=== PATIENT | male | born 1955 | race Caucasian/White ===

== ENCOUNTER 2016-09-05 12:52 | Inpatient (IN) | payer BC ==
[~2016-09-05] VITALS: Ht 180.3 cm; Wt 93.0 kg
[2016-09-05] VITALS (7 sets, daily range): BP systolic 129–145; BP diastolic 92–96; BMI 29.5
--- NOTE | ~2016-09-05 | HEMODYNAMI ---
PATIENT:IDALMIS JEREZ MEDICAL RECORD: [id number] : 51 LOCATION:[facility] D.2119 ADMISSION DATE: 09/05/16 Generatedon:09/13/201615:02 Patient name: IDALMIS JEREZ Patient #: [id number] SSN: : 1955 Date of study: 09/13/2016 Page: Of Hemodynamic Procedure Report Patient Data Patient Demographics Procedure consent was obtained First Name: IDALMIS Gender: Male Last Name: MERI : 1955 Patient #: [id number] Age: 61 year(s) Race: Unknown Additional ID: [id number] Contact details Address: [facility] [address] [place] State: [place] City: [place] Zip code: [address] Admission Admission Data Admission Date: 09/05/2016 Admission Time: 15:52 Room #: [facility]9 Procedure Procedure Types Cath Procedure Diagnostic Procedure [facility] w/Coronaries PCI Procedure Coronary Stent Initial Miscellaneous Procedures Moderate Sedation up to 30 minutes Procedure Description Procedure Date Procedure Date: 09/13/2016 Procedure Start Time: 14:33 Procedure End Time: 15:02 Procedure Staff Name Function Parrish Ray MD Performing Physician Abril Driver RN Nurse Joe London RT Monitor Vinnie Larson RT Scrub Benito Huerta RN Advertising Sales Assistant Procedure Data Cath Procedure Fluoroscopy Diagnostic fluoroscopy Total fluoroscopy Time: 4.8 time: 4.8 min min Diagnostic fluoroscopy Total fluoroscopy dose: dose: 1116 mGy 1116 mGy Contrast Material Contrast Material Type Amount (ml) Isovue 300 103 Entry Location Entry Primary Successful Side Size Upsize Upsize Entry Closure Succes sful Closure Location (Fr) 1 (Fr) 2 (Fr) Remarks Device Remarks Femoral Right 5 Fr 6 Fr Exoseal artery Short Estimated blood loss: 10 ml Diagnostic catheters Device Type Used For End Catheter Placement Cordis 5Fr JL 4.0 Coronary Catheter (MP) Angiography Cordis 5Fr 3DRC Catheter Coronary (MP) Angiography Cordis 5Fr Pigtail LV Angiography Catheter (MP) Procedure Complications No complications Procedure Medications Medication Administration Route Dosage Heparin Flush Bag added to field 2 bags (1000units/500ml NS) Lidocaine 2% added to field 20 Oxygen NC 2 l/min Versed I.V. 1 mg Fentanyl I.V. 50 mcg Heparin Bolus I.V. 9400 units Fentanyl I.V. 25 mcg Plavix P.O. 600 mg Hemodynamics Rest Heart Rate: 93 (bpm) Pressure Samples Time Site Value (mmHg) Purpose Heart Use Rate(bpm) 14:40 LV 109/12,29 Snapshot 80 14:40 LV 117/13,33 Snapshot 81 14:41 AO 106/66(83) Pullback 87 Gradients Valve Time Site Site 2 Mean SEP/DFP Peak To Heart Use 1 (mmHg) (sec/min) Peak Rate (mmHg) (bpm) Aortic 14:41 LV AO 12 6 87 106/66(83) Calculations Valve P-P Mean Valve Index Valve Source Name Gradient Area Flow (cm2) Aortic 12 12 Snapshots Pre Cath Intra NCS Post Cath Vital Signs Time Heart Resp SPO2 NIBP (mmHg) Rhythm Pain Sedation Rate (ipm) (%) Status Level (bpm) 13:41:26 93 15 95 115/84(98) NSR 0 (11) 10(A) , No pain 13:45:32 106 13 95 115/84(97) NSR 0 (11) 10(A) , No pain 13:49:38 92 14 95 116/83(96) NSR 0 (11) 10(A) , No pain 13:53:44 92 16 95 114/81(95) NSR 0 (11) 10(A) , No pain 13:57:50 87 15 95 106/80(92) NSR 0 (11) 10(A) , No pain 14:01:54 88 16 96 109/81(94) NSR 0 (11) 10(A) , No pain 14:05:57 85 16 95 113/81(96) NSR 0 (11) 10(A) , No pain 14:10:03 86 16 95 109/80(92) NSR 0 (11) 10(A) , No pain 14:14:09 85 16 95 111/78(93) NSR 0 (11) 10(A) , No pain 14:18:14 85 16 95 108/77(90) NSR 0 (11) 10(A) , No pain 14:22:18 86 16 95 113/80(95) NSR 0 (11) 10(A) , No pain 14:26:24 88 16 95 112/82(97) NSR 0 (11) 10(A) , No pain 14:30:30 89 16 95 117/80(99) NSR 0 (11) 10(A) , No pain 14:34:37 89 14 95 112/79(90) NSR 0 (11) 9(A) , No pain 14:38:41 89 14 95 113/82(97) NSR 0 (11) 9(A) , No pain 14:42:47 89 14 95 108/79(91) NSR 0 (11) 9(A) , No pain 14:46:51 88 16 95 111/82(93) NSR 0 (11) 9(A) , No pain 14:50:56 88 16 95 115/76(91) NSR 0 (11) 9(A) , No pain 14:55:04 89 16 95 111/74(101) NSR 0 (11) 10(A) , No pain 14:57:54 89 15 95 118/78(95) NSR 0 (11) 10(A) , No pain 15:02:02 94 16 92 118/76(92) NSR 0 (11) 10(A) , No pain Medications Time Medication Route Dose Verified Delivered Reason Notes Effectiveness by by 13:47:58 Oxygen NC 2 Parrish Abril Per physician l/min Curtis Driver RN 13:52:50 Heparin Flush added 2 Parrish Parrish Per physician Bag to bags Curtis Ray MD (1000units/500ml field NS) 13:52:58 Lidocaine 2% added 20ml Parrish Parrish used for to vial Curtis Ray MD procedure field 14:30:45 Versed I.V. 1 mg Parrish Abril for sedation Curtis Driver RN 14:30:51 Fentanyl I.V. 50 Parrish Abril for sedation mcg Curtis Driver RN 14:33:40 Fentanyl I.V. 25 Parrish Abril for sedation mcg Curtis Driver RN 14:49:45 Heparin Bolus I.V. 9400 Parrish Abril for dose units Curtis Driver RN anticoagulation verified wt dr ray 14:56:59 Plavix P.O. 600 Parrish Samuels for mg Curtis Driver RN antiplatelet therapy Procedure Log Time Note 13:05:27 Benito Huerta RN sent for patient. Start room use. 13:15:36 Time tracking: Regular hours 13:15:40 Plan of Care:Hemodynamics will remain stable., Cardiac rhythm will remain stable., Comfort level will be maintained., Respiratory function will remain adequate., Patient/ family verbilizes understanding of procedure., Procedure tolerated without complication., Recovers from procedure without complications.. 13:34:06 Patient received from PCU to CCL 2 Alert and oriented. Tansferred to table in Supine position. 13:34:07 Warm blankets applied, and henry hugger turned on for patient comfort. 13:34:07 Correct patient and procedure confirmed by team. 13:34:09 Signed procedure consent form obtained from patient. 13:34:09 ECG and BP/O2 sat monitors applied to patient. 13:40:29 Baseline sample Acquired. 13:40:29 Vital chart was started 13:40:32 Rhythm: sinus rhythm 13:40:34 Full Disclosure recording started 13:47:58 Oxygen 2 l/min NC was given by Abril Driver RN; Per physician; 13:52:50 Heparin Flush Bag (1000units/500ml NS) 2 bags added to field was given by Parrish Ray MD; Per physician; 13:52:58 Lidocaine 2% 20ml vial added to field was given by Parrish Ray MD; used for procedure; 13:55:56 H&P Date Dictated: 09/13/2016 Within 30 days and on chart., H&P Addendum completed by physician on day of procedure. (MUST COMPLETE FOR ALL OUTPATIENTS). 13:55:57 Pre-procedure instructions explained to patient. 13:55:58 Pre-op teaching completed and patient verbalized understanding. 13:56:00 Family in waiting room. 13:56:02 Patient NPO since Midnight. 13:56:04 Is the patient allergic to Iodine/contrast media? No. 13:56:45 ACC The patient was administered the following blood thiners within the last 24 hours: None 13:56:48 Patient diabetic? Yes. 13:56:51 If diabetic: On Metformin? No 13:56:54 Previous problem with sedation/anesthesia? No ? 13:56:55 Snore? Yes 13:56:56 Sleep apnea? No 13:56:57 Deviated septum? No 13:56:58 Opens mouth fully? Yes 13:56:59 Sticks out tongue? Yes 13:57:01 Airway obstruction? No ? 13:57:05 Dentures? No ? 13:57:11 Pre procedure: right dorsailis pedis pulse 1+ Palpable, but thready & weak; easily obliterated 13:57:14 Patient pain scale 0/10 ?. 13:58:18 No radial per physician, due to possible dialysis fistula placement in near future. 13:59:03 IV patent on arrival in left IJ with 0.9% NaCl at [facility]. 13:59:08 Lab results completed and on chart. 13:59:12 Right groin area was prepped with chlora-prep and draped in sterile fashion 13:59:13 Alarms reviewed by R. N. 13:59:13 Sharps counted by scrub and verified by R.N. 13:59:19 Use device set Femoral Dx 13:59:22 Tegaderm 4 x 4 opened to sterile field. 13:59:23 Acist Manifold opened to sterile field. 13:59:23 Acist Hand Control opened to sterile field. 13:59:25 Acist Syringe opened to sterile field. 13:59:25 Bag Decanter opened to sterile field. 13:59:26 Medline Cath Pack opened to sterile field. 13:59:26 Terumo 5Fr Kilgore Sheath opened to sterile field. 13:59:26 St Wilfrid 260cm J .035 wire opened to sterile field. 13:59:28 Diagnostic Infinity 5Fr Multipack catheter opened to sterile field. 14:10:51 Case delayed due to physician working in 3. 14:29:53 --------ALL STOP TIME OUT------ 14:29:54 Final Timeout: patient, procedure, and site verified with staff and physician. All members of the team are in agreement. 14:29:56 Right groin site verified by team. 14:29:58 Physical assessment completed. ASA score P 2 - A patient with mild systemic disease as per Parrish Ray MD. 14:30:01 Sedation plan: IV Moderate Sedation Versed, Fentanyl 14:30:45 Versed 1 mg I.V. was given by Abril Driver RN; for sedation; 14:30:51 Fentanyl 50 mcg I.V. was given by Abril Driver RN; for sedation; 14:33:03 Procedure started. 14:33:16 Local anesthetic to right femoral artery with Lidocaine 2% by Parrish Ray MD.INITIAL ACCESS ONLY 14:33:40 Fentanyl 25 mcg I.V. was given by Abril Driver RN; for sedation; 14:33:50 A 5 Fr sheath was inserted into the Right Femoral artery 14:34:16 A Cordis 5Fr JL 4.0 Catheter (MP) was advanced over the wire and used for Coronary Angiography. 14:34:21 Zero performed for pressure channel P1 14:34:23 Zero performed for pressure channel P1 14:34:25 Zero performed for pressure channel P1 14:34:28 Zero performed for pressure channel P1 14:36:14 LCA angiography performed. 14:37:06 Catheter exchanged over wire. 14:37:21 A Cordis 5Fr 3DRC Catheter (MP) was advanced over the wire and used for Coronary Angiography. 14:37:55 RCA angiography performed. 14:39:33 Catheter exchanged over wire. 14:39:43 A Cordis 5Fr Pigtail Catheter (MP) was advanced over the wire and used for LV Angiography. 14:41:03 LV angiography performed. 14:41:07 LV gram done using BURR 14:41:14 EF : 20 % 14:41:33 LV hemodynamics recorded. 14:42:20 Injector settings: Ml/sec: 10, Volume: 20, 14:44:43 Catheter exchanged over wire. 14:45:33 Terumo 6Fr Kilgore Sheath opened to sterile field. 14:45:33 High Pressure Extension Tubing (Curtis) opened to sterile field. 14:45:33 [employer] BasixCompak Inflation Kit opened to sterile field. 14:45:34 Perez BMW Edgerton 2 J-tip 300cm 0.014 guide wir opened to sterile field. 14:45:34 ZIMPERIUMtronic Launcher 6Fr AR 1.0 guide catheter opened to sterile field. 14:46:55 Sheath upsized to a 6 Fr Short. 14:47:45 ACC PCI Site: mRCA has 80% stenosis. 14:47:49 ACC Pre-intervention SNOW Flow is 3. 14:47:58 6 Fr AR 1 guide catheter was inserted over the wire 14:49:38 BMW wire advanced. 14:49:45 Heparin Bolus 9400 units I.V. was given by Abril Driver RN; for anticoagulation; dose verified wtih dr ray 14:50:52 Wire advanced across lesion. 14:54:00 Inflation Number: 1 A ZIMPERIUMtronic Integrity 3.5 X 18 stent was prepped and advanced across the Mid RCA. The stent was deployed at 12 EJ for 0:10 (min:sec). 14:55:03 ACC Post-intervention SNOW Flow is 3. 14:55:03 Stent catheter was removed intact over wire. 14:55:04 Wire removed. 14:55:04 Guide catheter removed. 14:55:38 Cordis 6Fr Exoseal opened to sterile field. 14:55:53 Sheath removed intact; hemostasis achieved with Exoseal to the Right Femoral artery. 14:56:25 Procedure ended.(Physican Out) 14:56:59 Plavix 600 mg P.O. was given by Abril Driver RN; for antiplatelet therapy; 14:57:31 Fluoroscopy time 04.80 minutes. 14:57:43 Fluoroscopy dose: 1116 mGy 14:57:43 Flurop Dose total: 1116 14:57:49 Contrast amount:Isovue 300 103ml. 14:57:51 Sharps counted by scrub and verified by R.N. 14:57:53 Insertion/operative site no bleeding no hematoma. 14:57:56 Post-op/insertion site Right Femoral artery dressed using a 4 x 4 and Tegaderm. 14:58:01 Post Procedure Pulses reassessed and unchanged 14:58:06 Post-procedure physical assessment completed. ASA score P 2 - A patient with mild systemic disease as per Parrish Ray MD. 14:58:08 Post procedure rhythm: unchanged. 14:58:18 Estimated blood loss: 10 ml 14:58:19 Post procedure instruction explained to patient.Patient verbalizes understanding. 14:58:19 Patient needs reinforcement of post procedure teaching. 14:58:36 Procedure type changed to Cath procedure, Diagnostic procedure, LHC, LHC w/Coronaries, PCI procedure, Coronary Stent Initial, Miscellaneous Procedures, Moderate Sedation up to 30 minutes 14:58:44 Procedure Complication : No complications 14:59:12 Procedure and supply charges have been captured, reviewed, submitted and are correct. 15:01:54 Vital chart was stopped 15:01:54 See physician's report for complete and final results. 15:01:57 Report given to PCU. 15:02:00 Patient transfered to PCU with Bed. 15:02:02 Procedure ended. 15:02:02 Full Disclosure recording stopped 15:02:16 ACC-PCI Only Patient was given prescriptions, or instructed by Parrish Ray MD to start/continue the following medications upon discharge: Aspirin, Plavix 15:02:17 End room use (Document Last) Intervention Summary Intervention Notes Time ActionType Lesion and Equipment Action# Pressure Duration Attributes Used 14:54:00 Place stent Mid RCA Medtronic 1 12 00:10 Integrity 3.5 X 18 stent Device Usage Item Name Manufacture Quantity Catalog Hospital Part Current Minimal L ot# / Number Charge Number Stock Stock Serial# Code Tegade 4 1 [id number] [id number] 502604 5 x 4 Acist Acist 1 98100 444606 429799 437415 5 Manifold Medical Systems Inc Acist Hand Acist 1 29704 199539 652445 920827 5 Control Medical Systems Inc Acist Acist 1 03063 728821 794122 501951 20 Syringe Medical Systems Inc Bag Microtek 1 2002S 045375 89869 440597 5 Texifter Inc. Medline Cardinal 1 [id number] 225648 68894 974552 5 Cath Pack Health Terumo 5Fr Terumo 1 [id number] 095717 569473 618980 [address] St Wilfrid 1 056447 317528 478837 133791 30 260cm J .035 wire Diagnostic Cardinal 1 [id number] 570264 58274 127694 30 Infinity Health 5Fr Multipack catheter Cordis 5Fr Cardinal 1 646074 5 JL 4.0 Health Catheter (MP) Cordis 5Fr Cardinal 1 273708 5 3DRC Health Catheter (MP) Cordis 5Fr Cardinal 1 201350 5 Pigtail Health Catheter (MP) Terumo 6Fr Terumo 1 [id number] 339937 123614 658500 40 Kilgore Sheath High Merit 1 [id number] 800527 56994 541462 10 Pressure Medical Extension Tubing (Ray) Merit Merit 1 [id number] 649887 946772 369408 15 BasixCompak Medical Inflation Kit Perez BMW Perez 1 [id number] 827721 294522 464394 5 Edgerton 2 Vascular J-tip 300cm 0.014 guide wir Medtronic Medtronic 1 [id number] 520617 90911 986393 1 Launcher 6Fr AR 1.0 guide catheter Medtronic Medtronic 1 [id number] 139317 480216 1 0 [id number] Integrity 3.5 X 18 stent Cordis 6Fr Cardinal 1 [id number] 679060 874831 256487 10 [facility] Healcerion Signature Audit [place] Stage Time Signature Unsigned Intra-Procedure 09/13/2016 Joe London 3:02:42 PM RT(R) Signatures Monitor : Joe London RT Signature : Date : Time : [place] [id number] [facility] [place] [address]
[2016-09-05 14:49] LABS: ALBUMIN 2.5 g/dL (3.4-5.0); ALKALINE PHOSPHATASE 116 U/L (46-116); ALT (SGPT) 39 U/L (10-68); BILIRUBIN - TOTAL 0.67 mg/dL (0.2-1.3); CALC OSMOLALITY 312 mosm/kg (275-300); CALCIUM 8.5 mg/dL (8.5-10.1); CARBON DIOXIDE 16.8 mmol/L (21.0-32.0); CHLORIDE - SERUM 95 mmol/L (98-107); GLUCOSE 332 mg/dL (74-106); POTASSIUM - SERUM 3.9 mmol/L (3.5-5.1); SODIUM 131 mmol/L (136-145); UREA NITROGEN 116 mg/dL (7-18); eGFR NON AFRICAN AMERICAN 10 mL/min (90-120)
[2016-09-05 14:54] LABS: BASOPHILS 0.1 % (0.0-2.0); EOSINOPHILS 0.1 % (0-7); HEMATOCRIT 33.3 % (42.0-54.0); HEMOGLOBIN 11.3 g/dL (13.5-17.5); IMMATURE GRANULOCYTES 0.5 % (0-5); LYMPHOCYTES 9.8 % (15-50); MCH 28.7 pg (26.0-34.0); MCHC 33.9 g/dL (31.0-37.0); MCV 84.5 fL (80.0-100.0); MEAN PLATELET VOLUME 10.4 fL (7.4-10.4); MONOCYTES 11.1 % (2-11); NEUTROPHILS 78.4 % (40-80); PLATELET COUNT 234 10x3/uL (130-400); RBC 3.94 10x6/uL (4.20-6.10); RDW 12.9 % (11.5-14.5); WBC 11.3 10x3/uL (4.8-10.8)
[2016-09-05 15:14] LABS: CREATINE KINASE 353 UL (21-232)
[2016-09-05 15:18] LABS: PRO BNP 57086 pg/mL (0-125)
[2016-09-05 15:19] LABS: TROPONIN-I 26.239 ng/mL (0.000-0.060)
[2016-09-05 15:20] LABS: CKMB 6.2 U/L (0.0-3.6)
--- NOTE | 2016-09-05 17:15 | NUR ---
PT ARRIVED TO UNIT ACCOMPANIED BY FAMILY AT HOSPITAL STAFF. HOOKED UP TO ICU MONITORS. DENIES CURRENT SHORTNESS OF BREATH AND CHEST PAIN. ASSESSMENT IN FLOWSHEET. SINUS TACHYCARDIA
--- NOTE | 2016-09-05 17:30 | NUR ---
DR. MACIEL AT BEDSIDE. SPOKE WITH ER NURSE, SAID ER DOC CONTACTED DR. MCCABE
[2016-09-05 19:04] LABS: COLOR YELLOW (YELLOW)
[2016-09-05 19:05] LABS: APPEARANCE CLEAR (CLEAR); BILIRUBIN NEGATIVE (NEGATIVE); GLUCOSE NEGATIVE (NEGATIVE); KETONE NEGATIVE (NEGATIVE); LEUKOCYTE ESTERASE NEGATIVE (NEGATIVE); NITRITE NEGATIVE (NEGATIVE); PROTEIN TRACE mg/dL (NEGATIVE); SPECIFIC GRAVITY 1.015 (1.005-1.020); UROBILINOGEN NORMAL (NORMAL)
[2016-09-05 19:09] LABS: CREATININE - URINE 110.9 mg/dL (30-125); PROTEIN - URINE 57.4 mg/dL (0.0-11.9)
[2016-09-05] MEDS ORDERED: LOSARTAN POTASS25 MG PO (19:26)
[2016-09-05] MEDS ORDERED: VIBRAMYCIN 100100 MG PO (19:27)
[2016-09-05] MEDS ORDERED: COZAAR25 MG PO (19:28)
[2016-09-05] MEDS ORDERED: NIFEDIPINE ER60 MG PO (19:29)
[2016-09-05] MEDS ORDERED: GLIPIZIDE10 MG PO (19:30)
--- NOTE | 2016-09-05 19:30 | NUR ---
ASSESSMENT COMPLETE. S1S2. SINUS TACHYCARDIA SHOWING ON MONITOR. RR SHALLOW; CLEAR BILATERALLY IN UPPER LOBES; DIMINISHED BILATERALLY IN LOWER LOBES. BOWEL SOUNDS ACTIVE; DENIES TENDERNESS. AAO. ON 4 L VIA NASAL CANNULA. RADIAL AND PEDAL PULSES PALPATED. PERRLA; 3MM BRISK. C/O SHORTNESS OF BREATH BUT STATES "HAVING THE OXYGEN ON HELPS."
[2016-09-05] MEDS ORDERED: FISH OIL 1,0001 CA1 PO (19:31)
[2016-09-05] MEDS ORDERED: LISINOPRIL10 MG PO (19:31)
[2016-09-05] MEDS ORDERED: LANTUS INSULIN10 ML SC (19:33)
--- NOTE | 2016-09-05 21:40 | NUR ---
PT TRANSFERED FROM 2300 TO 2311.
--- NOTE | 2016-09-05 23:20 | NUR ---
REASSESSMENT COMPLETE. NO CHANGES FROM PREVIOUS ASSESSMENT. CALL LIGHT IN REACH. WILL CONTINUE TO MONITOR.
[2016-09-06] VITALS (24 sets, daily range): BP systolic 115–147; BP diastolic 84–109; Ht 180.3 cm; Wt 93.0 kg
--- NOTE | 2016-09-06 01:30 | NUR ---
PT PLACE ON HUMIDIFIED OXYGEN AT 6L VIA NC. ON 4 L THE PT'S O2 SAT WOULD DROP TO 88-89%. ON 6L PT O2 SAT IS 94-95%.
--- NOTE | 2016-09-06 03:20 | NUR ---
REASSESSMENT COMPLETE. NO CHANGES FROM PREVIOUS ASSESSMENT. CALL LIGHT IN REACH. WILL CONTINUE TO MONITOR.
[2016-09-06 04:37] LABS: BASOPHILS 0.2 % (0.0-2.0); EOSINOPHILS 0.7 % (0-7); HEMATOCRIT 34.1 % (42.0-54.0); HEMOGLOBIN 11.5 g/dL (13.5-17.5); IMMATURE GRANULOCYTES 0.9 % (0-5); LYMPHOCYTES 17.4 % (15-50); MCH 28.6 pg (26.0-34.0); MCHC 33.7 g/dL (31.0-37.0); MCV 84.8 fL (80.0-100.0); MEAN PLATELET VOLUME 10.1 fL (7.4-10.4); MONOCYTES 11.3 % (2-11); NEUTROPHILS 69.5 % (40-80); PLATELET COUNT 213 10x3/uL (130-400); RBC 4.02 10x6/uL (4.20-6.10); RDW 12.9 % (11.5-14.5); WBC 10.9 10x3/uL (4.8-10.8)
[2016-09-06 04:51] LABS: ANION GAP 21.4 mmol/L (8-16); CALCIUM 8.9 mg/dL (8.5-10.1); CARBON DIOXIDE 19.3 mmol/L (21.0-32.0); CREATININE - SERUM 5.1 mg/dL (0.6-1.3); POTASSIUM - SERUM 3.7 mmol/L (3.5-5.1)
[2016-09-06 04:57] LABS: MAGNESIUM - SERUM 2.4 mg/dL (1.8-2.4); PHOSPHOROUS 5.9 mg/dL (2.5-4.9)
[2016-09-06 05:41] LABS: TROPONIN-I 27.738 ng/mL (0.000-0.060)
--- NOTE | 2016-09-06 07:00 | NUR ---
REPORT RECEIVED. PATIENT IN SEMIFOWLERS POSITION WATCHING TV. ASSESSMENT COMPLETED. NO NEEDS VOICED.
--- NOTE | 2016-09-06 07:27 | NUR ---
DR MCCABE HERE SEEING PATIENT. WILL WAIT FOR NEW ORDERS.
--- NOTE | 2016-09-06 08:33 | NUR ---
DR DESAI PAGED THROUGH THE SERVICE TO GET DIET AND POSSIBLY MEDICATIONS ORDERS.
--- NOTE | 2016-09-06 09:18 | NUR ---
DR DESAI HERE. EXPLAINED THAT PATIENT HAS BEEN HERE SINCE YESTERDAY AFTERNOON AND HAS NOT ORDERS FOR DIET, MEDICATIONS, ETC. HE STATED THAT HE WOULD FIX IT.
--- NOTE | 2016-09-06 10:36 | NUR ---
Is the patient Alert and Oriented? Yes 0 * How many steps to enter\exit or inside your home? 1 0 * PCP [facility] PRUITT AT [facility] [place] 0 * Pharmacy [facility] AT THE [facility] OR [facility] * Preadmission Environment Home with Family 0 * ADLs Independent 0 * Equipment None 0 * List name and contact numbers for known caregivers / representatives who currently or will assist patient after discharge: SPOUSE: NATHAN [phone] 0 * Community resources currently utilized None 0 * Additional services required to return to the preadmission environment? No 0 * Can the patient safely return to the preadmission environment? Yes 0 * Has this patient been hospitalized within the prior 30 days at any hospital? No PATIENT IS AWAKE AND ALERT. HE STATES HE LIVES AT HOME WITH HIS , NATHAN. SHE WILL BE AVAILABLE TO DRIVE HIM HOME AT DISCHARGE. PATIENT STATES HIS PCP IS AT THE [facility] IN [place], OMAR PRUITT. HE GETS HIS MEDS FROM THE [facility] OR FROM [facility] AT THE [facility]. HE DENIES EVER HAVING HOME HEALTH CARE. HE DENIES USE OF ANY EQUIPMENT. THERE IS ONLY 1 STEP TO ENTER HIS HOME. PATIENT [facility] I WILL CONTACT THEM TO LET THEM KNOW. I WILL CONTACT THE BUSINESS OFFICE TO LET THEM KNOW WE WILL NEED TO BILL HIS OTHER INSURANCE.
--- NOTE | 2016-09-06 12:17 | NUR ---
VISITING AT BEDSIDE. NO QUESTIONS VOICED. PATIENT FINISHING LUNCH AT THIS TIME. DENIES NEEDS.
--- NOTE | 2016-09-06 14:21 | NUR ---
PATIENT RECEIVED AND SIGNED THE DECLINE TO TRANSFER FORM. I TALKED WITH LOKESH LOPES AT THE [facility], . SPOKE WITH SHANNON WONG AND SHE IS GOING TO REMOVE [facility] FROM HIS INSURANCE AND THEY WILL BC FEP WILL BE BILLED FOR THIS STAY.
[2016-09-06 16:14] LABS: SPE - A/G RATIO 0.6 (0.7-1.7); SPE - ALBUMIN 2.6 g/dL (2.9-4.4); SPE - ALPHA-1 GLOBULIN 0.5 g/dL (0.0-0.4); SPE - ALPHA-2 GLOBULIN 1.2 g/dL (0.4-1.0); SPE - GAMMA GLOBULIN 1.7 g/dL (0.4-1.8); SPE - M-SPIKE 0.7 g/dL (Not Observed); SPE - TOTAL PROTEIN 6.9 g/dL (6.0-8.5)
--- NOTE | 2016-09-06 19:10 | NUR ---
REPORT RECIEVED, INITIAL ASSESMENT COMPLETE, PLEASE SEE FLOW SHEETS FOR DETAILS. DENIES PAIN/NEEDS ATT. LUNGS CLEAR AND DIMINISHED IN LOWER LOBES. PPP. VSS, BED LOW AND LOCKED, CALL LIGHT IN REACH. WILL CONTINUE TO MONITOR.
--- NOTE | 2016-09-06 21:00 | NUR ---
PT AWAKE, GAVE MEDS, ASKED FOR INFORMATION ON PROCARDIA, THIS WAS PROVIDED IN PRINT. DENIES ANY OTHER PAIN/NEEDS ATT. REPOSITIONS SELF. BED LOW AND LOCKED, CALL LIGHT IN REACH, WILL CONTINUE TO MONITOR.
--- NOTE | 2016-09-06 22:55 | NUR ---
REASSESSMENT COMPLETE, PLEASE SEE FLOW SHEETS FOR DETAILS. DENIES PAIN/NEEDS ATT. BED LOW AND LOCKED, CALL LIGHT IN REACH. VSS, WILL CONTINUE TO MONITOR.
[2016-09-07] VITALS (23 sets, daily range): BP systolic 103–124; BP diastolic 70–96
--- NOTE | 2016-09-07 00:53 | NUR ---
PT SLEEPING. NO S&S OF ACUTE DISTRESS NOTED. HR OF 108 SINUS RHYTHM NOTED ON MONITOR. ALL OTHER VSS. RR EVEN AND UNLABORED. BED LOW AND LOCKED, CALL LIGHT IN REACH. WILL CONTINUE TO MONITOR.
--- NOTE | 2016-09-07 03:08 | NUR ---
REASSESSMENT COMPLETE, PLEASE SEE FLOW SHEETS FOR DETAILS. VSS, BED LOW AND LOCKED, CALL LIGHT IN REACH. WILL CONTINUE TO MONITOR.
[2016-09-07 04:34] LABS: BASOPHILS 0.2 % (0.0-2.0); EOSINOPHILS 2.2 % (0-7); HEMATOCRIT 34.8 % (42.0-54.0); HEMOGLOBIN 11.9 g/dL (13.5-17.5); IMMATURE GRANULOCYTES 0.8 % (0-5); LYMPHOCYTES 15.8 % (15-50); MCH 29.1 pg (26.0-34.0); MCHC 34.2 g/dL (31.0-37.0); MCV 85.1 fL (80.0-100.0); MEAN PLATELET VOLUME 10.2 fL (7.4-10.4); MONOCYTES 12.6 % (2-11); NEUTROPHILS 68.4 % (40-80); PLATELET COUNT 229 10x3/uL (130-400); RBC 4.09 10x6/uL (4.20-6.10); RDW 12.9 % (11.5-14.5); WBC 12.5 10x3/uL (4.8-10.8)
[2016-09-07 04:41] LABS: ANION GAP 16.6 mmol/L (8-16); CALCIUM 8.5 mg/dL (8.5-10.1); CARBON DIOXIDE 21.7 mmol/L (21.0-32.0); CREATININE - SERUM 3.6 mg/dL (0.6-1.3); POTASSIUM - SERUM 4.3 mmol/L (3.5-5.1)
--- NOTE | 2016-09-07 05:00 | NUR ---
RESTING, DENIES PAIN/NEEDS ATT. VSS, NO S&S OF ACUTE DISTRESS NOTED. BED LOW AND LOCKED, CALL LIGHT IN REACH. WILL CONTINUE TO MONITOR.
--- NOTE | 2016-09-07 07:00 | NUR ---
REPORT RECEIVED. PATIENT IN SEMIFOWLERS POSITION WATCHING TV. ASSESSMENT COMPLETED AT THIS TIME. REQUESTED FRESH ICE WATER. THIS WAS OBTAINED. NO OTHER NEEDS VOICED.
--- NOTE | 2016-09-07 12:25 | NUR ---
PATIENT WITH NO VISITORS THIS VISITING HOUR.
--- NOTE | 2016-09-07 17:09 | NUR ---
URINE SPECEMIN WAS COLLECETD VIA CLEAN CATCH, IT WAS LABLED AND DROPPED OFF IN THE LAB APPROXIMATELY 25 MINUTES AGO.
--- NOTE | 2016-09-07 17:18 | NUR ---
DR DESAI PAGED TO SEE IF WE CAN GET SOMETHING FOR THE PATIENTS COUGH.
--- NOTE | 2016-09-07 17:31 | NUR ---
SPOKE WITH TEVIN AMAYA APN FOR DR DESAI. NEW ORDERS RECEIVED.
--- NOTE | 2016-09-07 18:25 | NUR ---
PATIENTS HERE VISITING. ALL HER QUESTIONS HAVE BEEN ANSWERED AT THIS TIME. BOTH DENY NEEDS.
--- NOTE | 2016-09-07 18:38 | NUR ---
PT C/O NOT HAVING A BOWEL MOVEMENT SINCE MONDAY NIGHT AND REQUESTED SOMETHING TO TAKE AT BEDTIME TO HELP HIM GO. PATIENT WAS GIVEN WARM PRUNE JUICE AND AN ORDER WAS RECEIVED FOR TRAM.
--- NOTE | 2016-09-07 19:00 | NUR ---
REPORT RECIEVED, INITIAL ASSESSMENT COMPLETE, PLEASE SEE FLOW SHEETS FOR DETAILS. RR EVEN AND UNLABORED. PT HAD JUST FINNISHED SOME PRUNE JUICE AND STATED HE WAS NAUSEATED, PROVIDED EMISIS BAG. PT CONCERNED ABOUT HAVING A BM. SHOWED HIM CAMODE IN ROOM AND INSTRUCTED TO NOTIFY WHEN NEEDED TO USE IT AND I WOULD HELP HET HIM SITUATED FOR USING IT. DENIES PAIN/NEEDS ATT. VSS, BED LOW AND LOCKED, CALL LIGHT IN REACH. WILL CONTINUE TO MONITOR.
--- NOTE | 2016-09-07 21:00 | NUR ---
RESTING, WATCHING TV. DENIES PAIN/NEEDS ATT. BED LOW AND LOCKED, CALL LIGHT IN REACH. WILL CONTINUE TO MONITOR.
--- NOTE | 2016-09-07 22:43 | NUR ---
REASSESSMENT COMPLETE, PLEASE SEE FLOW SHEETS FOR DETAILS. DENIES PAIN/NEEDS ATT, VSS, BED LOW AND LOCKED, CALL LIGHT IN REACH. WILL CONTINUE TO MONITOR.
[2016-09-08] VITALS (24 sets, daily range): BP systolic 90–125; BP diastolic 59–82
--- NOTE | 2016-09-08 00:45 | NUR ---
SLEEPING, NO S&S OF ACUTE DISTRESS NOTED. VSS, BED LOW AND LOCKED, CALL LIGHT IN REACH. WILL CONTINUE TO MONITOR.
--- NOTE | 2016-09-08 03:00 | NUR ---
REASSESSMENT COMPLETE, PLEASE SEE FLOW SHEETS FOR DETAILS. VSS, RR EVEN AND UNLABORED. BED LOW AND LOCKED, CALL LIGHT IN REACH. WILL CONTINUE TO MONITOR.
[2016-09-08 04:56] LABS: BASOPHILS 0.1 % (0.0-2.0); EOSINOPHILS 1.2 % (0-7); HEMATOCRIT 32.7 % (42.0-54.0); HEMOGLOBIN 11.1 g/dL (13.5-17.5); IMMATURE GRANULOCYTES 0.8 % (0-5); LYMPHOCYTES 10.9 % (15-50); MCH 28.5 pg (26.0-34.0); MCHC 33.9 g/dL (31.0-37.0); MCV 83.8 fL (80.0-100.0); MEAN PLATELET VOLUME 9.5 fL (7.4-10.4); MONOCYTES 10.2 % (2-11); NEUTROPHILS 76.8 % (40-80); PLATELET COUNT 247 10x3/uL (130-400); RDW 12.9 % (11.5-14.5); WBC 13.8 10x3/uL (4.8-10.8)
--- NOTE | 2016-09-08 05:00 | NUR ---
RESTING. WATCHING TV. DENIES PAIN/NEEDS ATT, VSS, BED LOW AND LOCKED, CALL LIGHT IN REACH. WILL CONTINUE TO MONITOR.
[2016-09-08 05:23] LABS: ANION GAP 16.5 mmol/L (8-16); CALCIUM 8.2 mg/dL (8.5-10.1); CARBON DIOXIDE 21.2 mmol/L (21.0-32.0); CREATININE - SERUM 3.6 mg/dL (0.6-1.3); POTASSIUM - SERUM 3.7 mmol/L (3.5-5.1)
[2016-09-08 05:30] LABS: HEMOGLOBIN A1C 7.8 % (4.8-6.0)
--- NOTE | 2016-09-08 09:10 | NUR ---
NUTRITION MONITORING & EVAL PT WITH VISITORS THIS AM. TOLERATING SILVERIO DIET. WILL CONTINUE TO PROVIDE CURRENT DIET, MONITOR PT PROGRESS. RD FOLLOWING
--- NOTE | 2016-09-08 19:00 | NUR ---
REPORT REC'D, PATIENT CARE ASSUMED. ASSESSMENT COMPLETED. SEE FLOW SHEETS FOR ALL FINDINGS. PT A/O X4, DENIES PAIN OR OTHER DISCOMFORT AT THIS TIME. ST ON CM WITH HR TO 104. LUNG SOUNDS CRACKLES TO ULB WITH DIMINISHED TO LLB,UNLABORED ON 3L VIA NC. PPP. CALL LIGHT IN REACH. WILL CONT TO MONITOR.
--- NOTE | 2016-09-08 21:00 | NUR ---
ASSISTED TO BSC. MODERATE FORMED STOOL RESULTED. BACK TO BED WITHOUT DIFFIC. CALL LIGHT AND BST IN REACH, CPOC,
--- NOTE | 2016-09-08 23:00 | NUR ---
REASSESSMENT COMPLETED. SEE FLOW SHEETS FOR ALL FINDINGS. NO SIGNS OF DISTRESS NOTED AT THIS TIME. VSS. NO COMPLAINTS . CALL LIGHT AND BST IN REACH. CPOC,
[2016-09-09] VITALS (10 sets, daily range): BP systolic 96–115; BP diastolic 41–80
--- NOTE | 2016-09-09 01:00 | NUR ---
PT RESTING WITHOUT DISTRESS, VSS. NO NEEDS VOICES AT THIS TIME. CALL LIGHT IN REACH. CPOC.
--- NOTE | 2016-09-09 03:00 | NUR ---
REASSESSMENT COMPLETED PER FLOW SHEETS. NO ACUTE CHANGES IN PT'S CONDITION NOTED. VSS. NO NEEDS VOICES AT THIS TIME. CALL LIGHT IN REACH. CPOC.
[2016-09-09 04:44] LABS: BASOPHILS 0.1 % (0.0-2.0); EOSINOPHILS 1.5 % (0-7); HEMATOCRIT 31.4 % (42.0-54.0); HEMOGLOBIN 10.8 g/dL (13.5-17.5); IMMATURE GRANULOCYTES 0.9 % (0-5); LYMPHOCYTES 10.8 % (15-50); MCH 28.9 pg (26.0-34.0); MCHC 34.4 g/dL (31.0-37.0); MEAN PLATELET VOLUME 9.3 fL (7.4-10.4); NEUTROPHILS 75.7 % (40-80); PLATELET COUNT 232 10x3/uL (130-400); RBC 3.74 10x6/uL (4.20-6.10)
[2016-09-09 05:47] LABS: ANION GAP 17.8 mmol/L (8-16); CALCIUM 8.2 mg/dL (8.5-10.1); CREATININE - SERUM 3.7 mg/dL (0.6-1.3); POTASSIUM - SERUM 3.8 mmol/L (3.5-5.1); TROPONIN-I 16.056 ng/mL (0.000-0.060)
--- NOTE | 2016-09-09 06:31 | NUR ---
PT ARRIVED ON BED FROM ICU TO ROOM 2118. ABLE TO STAND UP AND WALK TO NEW BED IN ROOM. ALERT/ORIENTED. DENIES PAIN OR DISCOMFORT. O2 @ 2L/NC CONTINUED. VERY PLEASANT. ORIENTED TO ROOM/CALL LIGHT/SAFETY. TELEMETRY STARTED. CPOC.
--- NOTE | 2016-09-09 07:37 | NUR ---
RESTING QUIETLY RESP UNLABORED NAD NOTED PT DENIES ANY NEEDS OR DISCOMFORT AT THIS TIME
--- NOTE | 2016-09-09 08:00 | NUR ---
ASSESSMENT COMPLETED. TELEMERTY SHOWS SR BBB WITH A RATE OF 99 02 @3 L/M PER NC. SL TO RIGHT HAND. DENIES ANY NEEDS. WILL MONITOR
[2016-09-09 12:27] LABS: COMPLEMENT C4 19.2 mg/dL (17.4-52.2)
[2016-09-09 12:29] LABS: ALBUMIN 2.4 g/dL (3.4-5.0); BILIRUBIN - DIRECT 0.21 mg/dL (0.00-0.30); BILIRUBIN - INDIRECT 0.26 mg/dL (0.00-1.00); BILIRUBIN - TOTAL 0.47 mg/dL (0.2-1.3); PROTEIN - SERUM 6.4 g/dL (6.4-8.2)
[2016-09-09 13:25] LABS: ERYTHROCYTE SEDIMENTATION RATE 39 mm/hr (0-20)
--- NOTE | 2016-09-09 13:31 | NUR ---
LYING QUIETLY.DENIES ANY NEEDS. FAMILY AT BEDSIDE. WILL MONITOR
[2016-09-10 00:15] VITALS: BP 103/68
--- NOTE | 2016-09-10 01:04 | NUR ---
PT RESTING WELL WITHOUT C/O OR DISTRESS NOTED. EYES CLOSED AND RESP EVEN AND UNLABORED. CALL LIGHT WITHIN REACH. WILL CONTINUE TO MONITOR.
[2016-09-10 03:08] LABS: UPE RAND - ALBUMIN 71.6 % (()); UPE RAND - ALPHA 1 GLOBULIN 1.1 % (()); UPE RAND - ALPHA 2 GLOBULIN 9.1 % (()); UPE RAND - BETA GLOBULIN 7.8 % (()); UPE RAND - GAMMA GLOBULIN 10.4 % (())
[2016-09-10 04:30] VITALS: BP 111/60
[2016-09-10 05:54] LABS: BASOPHILS 0.1 % (0.0-2.0); EOSINOPHILS 0.2 % (0-7); HEMOGLOBIN 10.5 g/dL (13.5-17.5); MCH 28.5 pg (26.0-34.0); MCHC 33.9 g/dL (31.0-37.0); MCV 84.2 fL (80.0-100.0); MEAN PLATELET VOLUME 9.8 fL (7.4-10.4); MONOCYTES 7.3 % (2-11); NEUTROPHILS 82.4 % (40-80); PLATELET COUNT 270 10x3/uL (130-400); RBC 3.68 10x6/uL (4.20-6.10); WBC 13.3 10x3/uL (4.8-10.8)
[2016-09-10 06:40] LABS: ALBUMIN 2.4 g/dL (3.4-5.0); ANION GAP 23.6 mmol/L (8-16); BILIRUBIN - TOTAL 0.6 mg/dL (0.2-1.3); CALCIUM 8.6 mg/dL (8.5-10.1); CARBON DIOXIDE 15.6 mmol/L (21.0-32.0); CREATININE - SERUM 4.6 mg/dL (0.6-1.3); POTASSIUM - SERUM 4.2 mmol/L (3.5-5.1); PROTEIN - SERUM 6.4 g/dL (6.4-8.2)
--- NOTE | 2016-09-10 07:30 | NUR ---
ASSESSMENT DONE. PT LAYING IN BED, EYES CLOSED, BUT PT AWAKE. C/O NAUSEA. STATES HE HAS BEEN "SICK" ALL NIGHT. C/O CONSTAPATION. STATES HE HAS NOT HAD A BM IN 4 DAYS. NO NAUSEA MEDS ORDERED. NO BS HEARD IN RUQ, OTHER BS HYPOACTIVE. WILL PAGE DR. DESAI FOR ORDERS. CALL LIGHT WITH IN REACH. WILL CONT. TO MONITOR.
[2016-09-10 07:55] VITALS: BP 104/71
--- NOTE | 2016-09-10 08:15 | NUR ---
PT REC'D A ST ON HIS LEFT FOREARM. STATES HE "MUST HAVE BUMPED IT ON SOMETHING WHEN HE WAS GETTING UP TO THE RESTROOM. NURSE CLEANED SITED WITH ANTISEPTIC AND APPLIED MEPILEX. PT STILL NAUSEATED. DR. GISELLE GARCIA. SPOUSE IN ROOM. WILL CONT. TO MONITOR.
--- NOTE | 2016-09-10 09:40 | NUR ---
RESP UL ON 02 2L NC. RESTS WITH EYES CLOSED. AT BS. CALL LIGHT IN REACH. WILL CONT. PLAN OF CARE.
--- NOTE | 2016-09-10 11:27 | NUR ---
DR. CARMICHAEL HERE. TRIALYSIS CATH PLACED. PT TOLERATED WELL. PT DENIES INCREASE IN SOB OR CHEST PAIN. STATES NAUSEA IS STARTING TO SLIGHTLY IMPROVE WITH ZOFRAN. SPOUSE AT BEDSIDE. WILL CONT. TO MONITOR.
[2016-09-10 11:47] VITALS: BP 124/73
[2016-09-10 12:14] LABS: CREATINE KINASE 511 UL (21-232)
[2016-09-10 12:26] LABS: CKMB 5.3 U/L (0.0-3.6)
--- NOTE | 2016-09-10 16:05 | NUR ---
DIALYSIS NURSE IN ROOM GETTING PT READY TO BEGIN DIALYSIS. PT STATES NAUSEA SLIGHTLY IMPROVED, AND THAT HE WAS ABLE TO SLEEP A LITTLE. DENIES NEEDS. WILL CONT. TO MONITOR.
--- NOTE | 2016-09-10 16:16 | NUR ---
NURSE ATTEMPTED TO REMOVE PT'S GIL CATH. PT WISHES TO WAIT UNTIL AFTER SUPPER. STATES HE ISN'T SURE HE WILL BE ABLE TO USE A URINAL. PT HAS BEEN BLADDER TRAINING SINCE REMOVAL ORDER WAS WRITTEN.
--- NOTE | 2016-09-10 17:14 | NUR ---
GIL CATH REMOVED. PT TOLERATED WELL. MODERATE AMOUNT OF YELLOW DRAINAGE NOTED AROUND URETHRA. URINAL PLACED WITH IN PT'S REACH, WELL CALL LIGHT. PT ENCOURAGED TO CALL FOR ASSISTANCE WITH URINAL. PT ALSO HAVING A RUN OF A-FLUTTER ON TELEMETRY WITH A HR OF 127. PT IS ASYMPTOMATIC. WILL NOTIFY CARDIOLOGY.
--- NOTE | 2016-09-10 18:17 | NUR ---
PT RECEIVING DIALYSIS IN ROOM. RESTING. APPEARS COMFORTABLE. DIALYSIS NURSE AND SPOUSE IN ROOM.
--- NOTE | 2016-09-10 18:38 | CN ---
PATIENT NAME:IDALMIS JEREZ MEDICAL RECORD: [id number] : 51 LOCATION:D. D.2119 ADMIT DATE: 09/05/16 ACCOUNT: [id number] CONSULTING PHYSICIAN: ROSS CARMICHAEL MD REFERRING PHYSICIAN: BRITTA DESAI MD DATE OF CONSULTATION: 09/10/2016 Surgical Consultation PHYSICAL AERODYNAMICIST: Ross Carmichael MD CHIEF COMPLAINT: Acute renal failure. HISTORY OF PRESENT ILLNESS: A 61-year-old male, who was admitted to the hospital with an OR and acute renal failure. He has a history of CHF as well as Lyme disease. He had recently been treated with doxycycline and steroids for acute flare of his Lyme disease. The patient has developed acute renal failure requiring hemodialysis at this time. PAST MEDICAL HISTORY: Includes CHF, coronary artery disease, myocardial infarction, Lyme disease, and diabetes. PAST SURGICAL HISTORY: Right ankle surgery. ALLERGIES: No known drug allergies. MEDICATIONS: Nifedipine, fish oil, Lantus, losartan, glipizide and lisinopril. FAMILY HISTORY: Lung disease, diabetes, cancer in his parents. His siblings have cardiovascular disease and diabetes. SOCIAL HISTORY: He denies any history of smoking or any history of alcohol. REVIEW OF SYSTEMS: A 12-point review of systems was obtained. Pertinent positive and negative as per the HPI. PHYSICAL EXAMINATION: VITAL SIGNS: Temperature 98.1, pulse rate 103, respiratory rate 20, blood pressure 104/71, and saturating 94% on room air. GENERAL: This is a well-developed and well-nourished male in mild distress. EYES: Extraocular muscles intact. EAR, NOSE, AND THROAT: Poor dentition. CARDIOVASCULAR: Normal sinus rhythm. LUNGS: He has got decreased breath sounds bilaterally with bilateral crackles. ABDOMEN: Soft, nontender, and nondistended. SKIN: Warm and dry. EXTREMITIES: He is neurovascularly intact. NEUROLOGICAL: He has a GCS of 15. No focal deficits. PSYCHIATRIC: He is alert and oriented times 3. LABORATORY DATA: Reviewed. Please see electronic medical record for full list of laboratory values. IMAGING: Chest x-ray was reviewed, which shows persistent CHF. CONSULT REPORT [id number] IDALMIS JEREZ IMPRESSION: A 61-year-old male with acute myocardial infarction and acute renal failure requiring hemodialysis. PLAN: Obtain consent for ultrasound-guided placement of hemodialysis catheter, continue management per Nephrology and Cardiology. TRANSINT:[id number] Voice Confirmation ID: [id number] DOCUMENT ID: [id number] ROSS CARMICHAEL MD at 1838 CC: [id number] DICTATION DATE: 09/10/16 1056 DROP BOARD MAN: 09/10/16 1208 ADM IN [facility] [address] [place] [address]
--- NOTE | 2016-09-10 18:38 | OP ---
PATIENT NAME: IDALMIS JEREZ MEDICAL RECORD: [id number] :51 LOCATION:D.M2 D.2119 ADMISSION DATE:09/05/16 SURGEON: ROSS CARMICHAEL MD DATE OF OPERATION: 09/10/2016 SURGEON: Ross Carmichael MD PREOPERATIVE DIAGNOSIS: Acute renal failure. POSTOPERATIVE DIAGNOSIS: Acute renal failure. PROCEDURE PERFORMED: Ultrasound-guided insertion of left internal jugular 13-Eritrean Trialysis catheter. ANESTHESIA: Local. COMPLICATIONS: None. SPECIMENS: None. ESTIMATED BLOOD LOSS: 5 cc. Case was clean. OPERATIVE COURSE: After consent was obtained, the patient was placed in the supine position in his hospital bed. A shoulder roll was placed. The bed was placed in the Trendelenburg position. A timeout was taken to confirm the correct patient and procedure. The left neck and chest were prepped and draped in typical sterile fashion. Local anesthetic was administered. The internal jugular vein and common carotid artery were identified with the ultrasound probe. Under ultrasound guidance, the left internal jugular vein was cannulated. A guidewire was placed. The needle was removed. A stab incision was made with 11-blade scalpel. The dilator to pass the wire in standard Seldinger fashion, 13-Eritrean catheter was then passed through the wire in a standard Seldinger fashion. It was secured to the skin using 2-0 nylon suture. All 3 ports were aspirated and flushed. A sterile Tegaderm dressing was placed. At the end of the case, all needle and instrument counts were correct. No complications occurred. The patient tolerated the procedure well and immediate post-procedure chest x-ray was performed. TRANSINT:[id number] Voice Confirmation ID: [id number] DOCUMENT ID: [id number] ROSS CARMICHAEL MD at 1838 CC: [id number] DICTATION DATE: 09/10/16 1121 DIEING OUT MACHINE OPERATOR: 09/10/16 1238 [place] [address]
--- NOTE | 2016-09-10 18:59 | NUR ---
HEMODIALYSIS COMPLETE, NET FLUID REMOVAL OF 2 LITERS, TOLERATED WELL. HOWEVER, WANT TO POINT OUT THAT PATIENT WAS VERY HYPERCOAGUABLE. PATIENT WAS CLOTTING AFTER 1.25 HOUR, I DID MANY FLUSHES AND WAS ABLE TO KEEP THE PATIENT ON FOR LAST 45 MINUTES. WOULD RECOMMEND NEXT TX SHOULD INCLUDE FLUSHES AND A HIGHER DOSE OF HEPARIN IF OK WITH PHYSICIAN.
[2016-09-10 20:26] VITALS: BP 116/73
[2016-09-11 00:35] VITALS: BP 117/75
[2016-09-11 04:17] VITALS: BP 112/72
[2016-09-11 07:27] LABS: BASOPHILS 0 % (0.0-2.0); EOSINOPHILS 0.3 % (0-7); HEMATOCRIT 31.2 % (42.0-54.0); HEMOGLOBIN 10.5 g/dL (13.5-17.5); IMMATURE GRANULOCYTES 0.7 % (0-5); LYMPHOCYTES 10.5 % (15-50); MCH 28.8 pg (26.0-34.0); MCHC 33.7 g/dL (31.0-37.0); MCV 85.5 fL (80.0-100.0); MEAN PLATELET VOLUME 9.8 fL (7.4-10.4); MONOCYTES 9.2 % (2-11); NEUTROPHILS 79.3 % (40-80); PLATELET COUNT 249 10x3/uL (130-400); RBC 3.65 10x6/uL (4.20-6.10); RDW 13.2 % (11.5-14.5); WBC 13.3 10x3/uL (4.8-10.8)
[2016-09-11 07:41] VITALS: BP 138/85
[2016-09-11 07:42] LABS: ALBUMIN 2.5 g/dL (3.4-5.0); BILIRUBIN - TOTAL 0.58 mg/dL (0.2-1.3); CALCIUM 8.5 mg/dL (8.5-10.1); CARBON DIOXIDE 22.1 mmol/L (21.0-32.0); CREATININE - SERUM 4.1 mg/dL (0.6-1.3); POTASSIUM - SERUM 4.1 mmol/L (3.5-5.1); PROTEIN - SERUM 6.4 g/dL (6.4-8.2)
--- NOTE | 2016-09-11 09:30 | NUR ---
CONSCENTS SIGNED TO RENAL BIOPSY.
[2016-09-11 11:39] VITALS: BP 122/85
--- NOTE | 2016-09-11 11:54 | NUR ---
DIALYSIS STARTED AT BS. WILL MONITOR NEEDS.
--- NOTE | 2016-09-11 14:25 | NUR ---
WILL HOLD DC TILL AM.
--- NOTE | 2016-09-11 14:39 | NUR ---
DIALYSIS COMPLETED. VS WNL. WILL CONT. PLAN OF CARE.
[2016-09-11 15:21] VITALS: BP 123/76
--- NOTE | 2016-09-11 19:00 | NUR ---
INITIAL ROUNDS MADE. PT SITTING UP IN BED RESTING WELL WITH EYES CLOSED, AWAKENED EASILY WHEN NAME CALLED. CALL LIGHT IN REACH. WILL CONT TO MONITOR.
[2016-09-11 20:30] VITALS: BP 125/77
[2016-09-12] VITALS (13 sets, daily range): BP systolic 99–128; BP diastolic 50–75
--- NOTE | 2016-09-12 00:26 | NUR ---
MEDICAL INSURANCE CLAIMS SPECIALIST AT BEDSIDE FOR VS, NEEDS ADDRESSED. CALL LIGHT IN REACH. WILL CONT TO MONITOR.
--- NOTE | 2016-09-12 05:32 | NUR ---
AM LAB DRAWN FROM TRIALYSIS CATHETER PER PROTOCOL AND TAKEN TO LAB.
--- NOTE | 2016-09-12 05:32 | NUR ---
AM LAB DRAWN FROM INFUSAPORT PER PROTOCOL AND TAKEN TO LAB.
[2016-09-12 05:45] LABS: BASOPHILS 0 % (0.0-2.0); EOSINOPHILS 0.3 % (0-7); HEMOGLOBIN 10.5 g/dL (13.5-17.5); IMMATURE GRANULOCYTES 0.8 % (0-5); LYMPHOCYTES 7.5 % (15-50); MCH 28.5 pg (26.0-34.0); MCHC 33.9 g/dL (31.0-37.0); MCV 84.2 fL (80.0-100.0); MEAN PLATELET VOLUME 9.8 fL (7.4-10.4); NEUTROPHILS 83.4 % (40-80); PLATELET COUNT 218 10x3/uL (130-400); RBC 3.68 10x6/uL (4.20-6.10); WBC 15.5 10x3/uL (4.8-10.8)
[2016-09-12 06:13] LABS: ALBUMIN 2.4 g/dL (3.4-5.0); ANION GAP 17.4 mmol/L (8-16); BILIRUBIN - TOTAL 0.6 mg/dL (0.2-1.3); CALCIUM 8.3 mg/dL (8.5-10.1); CARBON DIOXIDE 23.1 mmol/L (21.0-32.0); CREATININE - SERUM 3.9 mg/dL (0.6-1.3); POTASSIUM - SERUM 3.5 mmol/L (3.5-5.1); PROTEIN - SERUM 6.1 g/dL (6.4-8.2)
[2016-09-12 07:41] LABS: APTT 28.1 SECONDS (22.8-39.4); INR 1.18 (0.85-1.17); PROTIME 14.9 SECONDS (11.6-15.0)
[2016-09-12 10:12] LABS: ANA REFLEX - DIRECT Negative (Negative)
[2016-09-12 19:12] LABS: BASOPHILS 0 % (0.0-2.0); EOSINOPHILS 0 % (0-7); HEMATOCRIT 29.6 % (42.0-54.0); HEMOGLOBIN 9.9 g/dL (13.5-17.5); IMMATURE GRANULOCYTES 0.5 % (0-5); MCH 28.2 pg (26.0-34.0); MCHC 33.4 g/dL (31.0-37.0); MCV 84.3 fL (80.0-100.0); MEAN PLATELET VOLUME 9.9 fL (7.4-10.4); MONOCYTES 7.6 % (2-11); NEUTROPHILS 82.9 % (40-80); PLATELET COUNT 223 10x3/uL (130-400); RBC 3.51 10x6/uL (4.20-6.10); WBC 12.8 10x3/uL (4.8-10.8)
--- NOTE | 2016-09-12 19:25 | NUR ---
INITIAL ROUNDS MADE. PT CURRENTLY IN DIALYSIS
[2016-09-12 19:39] LABS: ANION GAP 18.2 mmol/L (8-16); CALCIUM 8.1 mg/dL (8.5-10.1); CARBON DIOXIDE 24.4 mmol/L (21.0-32.0); CREATININE - SERUM 4.1 mg/dL (0.6-1.3); POTASSIUM - SERUM 3.6 mmol/L (3.5-5.1)
--- NOTE | 2016-09-12 21:00 | NUR ---
PT RETURN FROM DIALYSIS VIA WC. ALERT O X3. FAMILY IN ROOM. FSBS DONE. DISCUSSED PLAN OF CARE AND NPO AFTER MN FOR LHC IN AM.
[2016-09-13] VITALS (12 sets, daily range): BP systolic 97–146; BP diastolic 63–98
--- NOTE | 2016-09-13 00:38 | NUR ---
EARLY MORNING BABYSITTER AT BEDSIDE FOR VS, NEEDS ADDRESSED. CALL LIGHT IN REACH. WILL CONT TO MONITOR.
[2016-09-13 05:12] LABS: BASOPHILS 0.1 % (0.0-2.0); EOSINOPHILS 0.1 % (0-7); HEMATOCRIT 29.6 % (42.0-54.0); HEMOGLOBIN 9.9 g/dL (13.5-17.5); IMMATURE GRANULOCYTES 0.6 % (0-5); LYMPHOCYTES 7.2 % (15-50); MCH 28.4 pg (26.0-34.0); MCHC 33.4 g/dL (31.0-37.0); MCV 85.1 fL (80.0-100.0); MONOCYTES 8.8 % (2-11); NEUTROPHILS 83.2 % (40-80); RBC 3.48 10x6/uL (4.20-6.10); RDW 13.1 % (11.5-14.5)
[2016-09-13 05:20] LABS: PLATELET COUNT 158 10x3/uL (130-400); WBC 16.3 10x3/uL (4.8-10.8)
[2016-09-13 05:36] LABS: ALBUMIN 2.4 g/dL (3.4-5.0); ANION GAP 12.5 mmol/L (8-16); BILIRUBIN - TOTAL 0.63 mg/dL (0.2-1.3); CALCIUM 8.1 mg/dL (8.5-10.1); CARBON DIOXIDE 28.1 mmol/L (21.0-32.0); CREATININE - SERUM 3.6 mg/dL (0.6-1.3); POTASSIUM - SERUM 3.6 mmol/L (3.5-5.1)
--- NOTE | 2016-09-13 06:30 | NUR ---
RESTING WELL, WATCHING TV. DENIES NEEDS, CONT TO MONITOR.
--- NOTE | 2016-09-13 13:32 | NUR ---
Nutrition follow-up: Pt NPO at this time due to scheduled procedure PO intake of renal diet has been ~50-75% of meals Labs reviewed Wt: 208# RDN will monitor patients diet advancement and tolerance.
[2016-09-13 16:15] LABS: ANCA - ANTIMYELOPEROXIDASE <9.0 U/mL (0.0-9.0); ANCA - ANTIPROTEINASE 3 <3.5 U/mL (0.0-3.5); ANCA - ATYPICAL <1:20 titer (Neg:<1:20); ANCA - CYTOPLASMIC <1:20 titer (Neg:<1:20); ANCA - PERINUCLEAR <1:20 titer (Neg:<1:20)
[2016-09-13 18:10] LABS: UPE RAND - ALBUMIN 72.1 % (()); UPE RAND - ALPHA 1 GLOBULIN 1.9 % (()); UPE RAND - ALPHA 2 GLOBULIN 8.1 % (()); UPE RAND - BETA GLOBULIN 7.9 % (())
--- NOTE | 2016-09-13 19:15 | NUR ---
INITIAL ROUNDS MADE. DIALYSIS NURSE IN ROOM, HD IN PROGRESS. PT LYING IN BED WATCHING TV WITH FAMILY IN ROOM. RIGHT GROIN STABLE. VSS. DENIES NEEDS OR C/O AT THIS TIME. WILL CONT TO MONITOR. CALL LIGHT IN REACH.
--- NOTE | 2016-09-13 23:29 | NUR ---
ADDRESSER AT BEDSIDE FOR VS. NEEDS ADDRESSED AT THIS TIME. CALL LIGHT IN REACH. SARAHY CONT TO MONITOR.
[2016-09-14] VITALS (18 sets, daily range): BP systolic 86–140; BP diastolic 54–73
[2016-09-14 05:03] LABS: BASOPHILS 0 % (0.0-2.0); EOSINOPHILS 0.2 % (0-7); HEMATOCRIT 30.3 % (42.0-54.0); HEMOGLOBIN 9.9 g/dL (13.5-17.5); IMMATURE GRANULOCYTES 0.3 % (0-5); LYMPHOCYTES 9.8 % (15-50); MCH 28.2 pg (26.0-34.0); MCHC 32.7 g/dL (31.0-37.0); MCV 86.3 fL (80.0-100.0); MEAN PLATELET VOLUME 10.2 fL (7.4-10.4); MONOCYTES 11.5 % (2-11); NEUTROPHILS 78.2 % (40-80); PLATELET COUNT 134 10x3/uL (130-400); RBC 3.51 10x6/uL (4.20-6.10); RDW 13.2 % (11.5-14.5); WBC 13.3 10x3/uL (4.8-10.8)
[2016-09-14 05:29] LABS: ALBUMIN 2.3 g/dL (3.4-5.0); ANION GAP 11.2 mmol/L (8-16); BILIRUBIN - TOTAL 0.63 mg/dL (0.2-1.3); CALCIUM 8.1 mg/dL (8.5-10.1); CARBON DIOXIDE 30.3 mmol/L (21.0-32.0); CREATININE - SERUM 3.3 mg/dL (0.6-1.3); POTASSIUM - SERUM 3.5 mmol/L (3.5-5.1); PROTEIN - SERUM 5.9 g/dL (6.4-8.2)
--- NOTE | 2016-09-14 06:41 | NUR ---
SITTING UP IN BED WATCHING TV. DENIES NEEDS. CONT TO MONITOR
--- NOTE | 2016-09-14 09:20 | NUR ---
TELEMETRY SR. IV PATENT. RESP UL ON 02 3L NC. CALL LIGHT IN REACH. WILL MONITOR NEEDS.
--- NOTE | 2016-09-14 12:43 | NUR ---
ZOFRAN 4MG GIVEN IVP FOR CONT. C/O NAUSEA. WILL MONITOR.
--- NOTE | 2016-09-14 13:53 | NUR ---
DRSG CHANGED TO CVL SITE,
--- NOTE | 2016-09-14 17:06 | NUR ---
LEAVING FOR DIALYSIS BY W/C.
--- NOTE | 2016-09-14 19:00 | NUR ---
REPORT RECIEVED, SHIFT ASSESSMENT COMPLETE, PT IS SEDATED ON VENT, ON 100% FIO2 WITH 98% O2 SAT. RHONCI/CRACKLES HEARD IN B/L UPPER LOBES, DIMINISHED IN B/L LOWER LOBES, S1S2, CM-NSR, NGT PLACED TO LEFT NARE, PLACEMENT CHECKED WITH SM AIR BOLUS, BROWN DRAINAGE NOTED, PATENT LEFT IJ TRIALYSIS...SEE FLOW SHEET, ABDOMEN IS SOFT AND ROUND WITH HYPO BS, DRSG TO RIGHT GROIN CATH SITE IS CDI, DRSG TO BACK INCISION REMOVED AT THIS TIME, 16FR GIL PLACED AT THIS TIME, CONCENTRATED UOP NOTED, NO EDEMA NOTED, ALL PPP, WILL CON'T TO MONITOR
[2016-09-14 19:03] LABS: BASOPHILS 0.1 % (0.0-2.0); EOSINOPHILS 0.1 % (0-7); HEMATOCRIT 28.9 % (42.0-54.0); HEMOGLOBIN 9.6 g/dL (13.5-17.5); IMMATURE GRANULOCYTES 0.5 % (0-5); LYMPHOCYTES 5.5 % (15-50); MCH 28.5 pg (26.0-34.0); MCHC 33.2 g/dL (31.0-37.0); MCV 85.8 fL (80.0-100.0); MEAN PLATELET VOLUME 10.5 fL (7.4-10.4); MONOCYTES 10.9 % (2-11); NEUTROPHILS 82.9 % (40-80); PLATELET COUNT 142 10x3/uL (130-400); RBC 3.37 10x6/uL (4.20-6.10); RDW 13.1 % (11.5-14.5)
[2016-09-14 19:07] LABS: WBC 18.3 10x3/uL (4.8-10.8)
--- NOTE | 2016-09-14 19:07 | NUR ---
1800 PT IN ROOM ON BED AND INTUBATED PER DR GONZALEZ. CXR DONE. VSS. DR FELTON CARBALLO AND DR MACIEL ALL PAGED. 1830 ALL MDS ABOVE RETURNED CALL NEW ORDERS RECIEVED AND PUT IN COMPUTER.
[2016-09-14 19:38] LABS: ALBUMIN 2.3 g/dL (3.4-5.0); ALKALINE PHOSPHATASE 79 U/L (46-116); ALT (SGPT) 28 U/L (10-68); CARBON DIOXIDE 29.9 mmol/L (21.0-32.0); CHLORIDE - SERUM 95 mmol/L (98-107); CKMB 2.7 U/L (0.0-3.6); CREATINE KINASE 161 UL (21-232); POTASSIUM - SERUM 3.2 mmol/L (3.5-5.1); PROTEIN - SERUM 5.8 g/dL (6.4-8.2); SODIUM 134 mmol/L (136-145); UREA NITROGEN 52 mg/dL (7-18)
[2016-09-14 19:40] LABS: CALC OSMOLALITY 287 mosm/kg (275-300); CREATININE - SERUM 4.2 mg/dL (0.6-1.3); GLUCOSE 210 mg/dL (74-106); eGFR NON AFRICAN AMERICAN 15 mL/min (90-120)
[2016-09-14 19:41] LABS: TROPONIN-I 7.034 ng/mL (0.000-0.060)
--- NOTE | 2016-09-14 20:00 | NUR ---
LABS CALLED TO DR. MACIEL, NEW ORDERS RECIEVED,
--- NOTE | 2016-09-14 20:30 | NUR ---
PT B/P IN THE 'S, LEVOPHED STARTED AT THIS TIME,
--- NOTE | 2016-09-14 20:37 | NUR ---
PT IN V-TACH AT THIS TIME, NO PULSE NOTED, CODE BLUE CALLED...SEE CODE BLUE SHEET
--- NOTE | 2016-09-14 20:48 | NUR ---
UPDATE CALLED TO DR. CARBALLO, NEW ORDERS RECIEVED,
--- NOTE | 2016-09-14 21:00 | NUR ---
V-FIB ON MONITOR, NO PULSE NOTED, CODE BLUE CALLED...SEE CODE BLUE SHEET..
--- NOTE | 2016-09-14 21:30 | NUR ---
FAMILY AT BEDSIDE, UPDATE GIVEN,
--- NOTE | 2016-09-14 21:35 | NUR ---
UPDATE CALLED TO DR.ST MEYERS, NEW ORDERS RECIEVED,
--- NOTE | 2016-09-14 23:00 | NUR ---
REASSESSMENT COMPLETE, NO CHANGES NOTED, PT REPOSITIONED FOR COMFORT, ORAL CARE PROVIDED, WILL CON'T TO MONITOR
[2016-09-15] VITALS (80 sets, daily range): BP systolic 80–138; BP diastolic 57–85
--- NOTE | 2016-09-15 00:20 | NUR ---
PT IN VFIB AT A RATE OF 200, CODE BLUE CALLED, SEE CODE BLUE SHEET
--- NOTE | 2016-09-15 00:45 | NUR ---
V-FIB ON THE MONITOR, CODE BLUE CALLED, SEE CODE BLUE SHEET
--- NOTE | 2016-09-15 01:00 | NUR ---
FAMILY AT BEDSIDE, UPDATE GIVEN
--- NOTE | 2016-09-15 01:50 | NUR ---
PT IN VFIB, CODE BLUE CALLED....SEE CODE BLUE SHEET
--- NOTE | 2016-09-15 02:05 | NUR ---
UPDATE CALLED TO DR MCCANN, NO NEW ORDERS RECIEVED,
--- NOTE | 2016-09-15 02:15 | NUR ---
UPDATE GIVEN TO FAMILY AT THIS TIME,
--- NOTE | 2016-09-15 02:15 | NUR ---
UPDATE CALLED TO DR. CARBALLO.. NO NEW ORDERS AT THIS TIME,
--- NOTE | 2016-09-15 02:16 | NUR ---
UPDATE CALLED TO DR. MACIEL, NO NEW ORDERS RECIEVED,
--- NOTE | 2016-09-15 02:59 | NUR ---
PT VFIB ON MONITOR, NO PULSE NOTED, CODE BLUE CALLED...SEE CODE BLUE SHEET..
--- NOTE | 2016-09-15 03:15 | NUR ---
FAMILY AT BEDSIDE, UPDATE GIVEN
--- NOTE | 2016-09-15 03:35 | NUR ---
VFIB ON MONITOR, CODE BLUE CALLED...SEE CODE BLUE SHEET
[2016-09-15 03:38] LABS: BASOPHILS 0.1 % (0.0-2.0); EOSINOPHILS 0.2 % (0-7); HEMATOCRIT 26.4 % (42.0-54.0); HEMOGLOBIN 8.8 g/dL (13.5-17.5); IMMATURE GRANULOCYTES 0.7 % (0-5); LYMPHOCYTES 12.4 % (15-50); MCH 28.3 pg (26.0-34.0); MCHC 33.3 g/dL (31.0-37.0); MCV 84.9 fL (80.0-100.0); MEAN PLATELET VOLUME 10.2 fL (7.4-10.4); MONOCYTES 8.3 % (2-11); NEUTROPHILS 78.3 % (40-80); PLATELET COUNT 136 10x3/uL (130-400); RBC 3.11 10x6/uL (4.20-6.10); WBC 17.1 10x3/uL (4.8-10.8)
--- NOTE | 2016-09-15 03:45 | NUR ---
FAMILY AT BEDSIDE, UPDATE GIVEN
[2016-09-15 03:48] LABS: ANION GAP 11.3 mmol/L (8-16); CALCIUM 8.8 mg/dL (8.5-10.1); CARBON DIOXIDE 30.1 mmol/L (21.0-32.0); CREATININE - SERUM 4.7 mg/dL (0.6-1.3); PHOSPHOROUS 5.5 mg/dL (2.5-4.9); POTASSIUM - SERUM 3.4 mmol/L (3.5-5.1)
--- NOTE | 2016-09-15 04:24 | NUR ---
V-FIB ON MONITOR, SEE CODE BLUE SHEET
--- NOTE | 2016-09-15 04:43 | NUR ---
FAMILY AT BEDSIDE, UPDATE GIVEN
--- NOTE | 2016-09-15 05:15 | NUR ---
VFIB ON THE MONITOR, CODE CALLED, SEE CODE BLUE SHEET
--- NOTE | 2016-09-15 05:34 | NUR ---
FAMILY AT BEDSIDE
--- NOTE | 2016-09-15 06:06 | NUR ---
V-FIB ON MONITOR, CODE CALLED...SEE CODE BLUE SHEET
--- NOTE | 2016-09-15 06:41 | NUR ---
DR LEDEZMA AT BEDSIDE. GIVEN UPDATE.
--- NOTE | 2016-09-15 07:00 | NUR ---
ASSESSMENT COMPLETE PER FLOWSHEET. FAMILY AT THE BEDSIDE. UPDATED GIVEN.
[2016-09-15 07:21] LABS: BASOPHILS 0.1 % (0.0-2.0); EOSINOPHILS 0.2 % (0-7); HEMATOCRIT 26.7 % (42.0-54.0); HEMOGLOBIN 9.1 g/dL (13.5-17.5); IMMATURE GRANULOCYTES 0.7 % (0-5); LYMPHOCYTES 11.8 % (15-50); MCH 28.7 pg (26.0-34.0); MCHC 34.1 g/dL (31.0-37.0); MCV 84.2 fL (80.0-100.0); MEAN PLATELET VOLUME 10.5 fL (7.4-10.4); MONOCYTES 10.5 % (2-11); NEUTROPHILS 76.7 % (40-80); PLATELET COUNT 150 10x3/uL (130-400); RBC 3.17 10x6/uL (4.20-6.10); RDW 13.2 % (11.5-14.5); WBC 16.1 10x3/uL (4.8-10.8)
[2016-09-15 07:35] LABS: ALBUMIN 2.2 g/dL (3.4-5.0); ANION GAP 14.2 mmol/L (8-16); BILIRUBIN - TOTAL 0.68 mg/dL (0.2-1.3); CALCIUM 8.4 mg/dL (8.5-10.1); CARBON DIOXIDE 26.1 mmol/L (21.0-32.0); CREATININE - SERUM 4.8 mg/dL (0.6-1.3); MAGNESIUM - SERUM 2.5 mg/dL (1.8-2.4); POTASSIUM - SERUM 3.3 mmol/L (3.5-5.1); PROTEIN - SERUM 5.4 g/dL (6.4-8.2)
--- NOTE | 2016-09-15 07:47 | NUR ---
VFIB NOTED ON MONITOR SHOCKED AT 360 J ONE AMP OF LIDOCAINE GIVEN. PT HAS PULSE CONTINUE ON VENT AT 100 PERCENT.
--- NOTE | 2016-09-15 08:05 | NUR ---
PT IN VFIB SHCOKED AT 360 J ONE AMP LIDOCAINE GIVEN. PULSE PRESENT.
--- NOTE | 2016-09-15 08:45 | NUR ---
DR MCCABE AND ST. MEYERS HERE AT BEDSIDE ANALYZING STRIPS. BOTH AGREE ON TORSADES. LIDOCAINE GTT ORDER INSTEAD OF CORDARONE.
--- NOTE | 2016-09-15 09:00 | NUR ---
LIDOCAINE GTT 1MG PER MIN INFUSING.
--- NOTE | 2016-09-15 10:58 | NUR ---
Nutrition follow-up: Pt is now in ICU, intubated. NPO s/p multiple code blue labs reviewed Wt: 213# Recommend starting TF of Nepro @ 20 ml/hr per NGT when medically feasible. Increase to goal rate of 55 ml/hr. RDN following.
--- NOTE | 2016-09-15 10:59 | NUR ---
KARTHIKEYANDAPADMINI NOTED ON MONITOR. SHOCKED AT 360 J. NSR ON MONITOR HR 59. FAMILY CALLED BACK TO BEDSIDE.
--- NOTE | 2016-09-15 11:00 | NUR ---
DR ELIOT GARCIA.
--- NOTE | 2016-09-15 11:05 | NUR ---
DR MCCABE RETURNED CALL. UPDATED ON PT CONDITION. NO NEW ORDERS GIVEN.
[2016-09-15 12:31] LABS: ANION GAP 15.5 mmol/L (8-16); CALCIUM 8.2 mg/dL (8.5-10.1); CARBON DIOXIDE 25.4 mmol/L (21.0-32.0); CREATININE - SERUM 5.1 mg/dL (0.6-1.3)
[2016-09-15 12:33] LABS: POTASSIUM - SERUM 3.9 mmol/L (3.5-5.1)
--- NOTE | 2016-09-15 13:51 | NUR ---
FAMILY AT THE BEDSIDE. . PT CONTINUES TO BE IN A SR HR 61. FIO2 AT 50 PERCENT.
--- NOTE | 2016-09-15 16:00 | NUR ---
DR LEDEZMA HERE CHECKING ON PT. NO NEW ORDERS OBTAINED.
--- NOTE | 2016-09-15 18:00 | NUR ---
FAMILY AT BEDSIDE. VSS. SR HR 71 ON MONITOR.
--- NOTE | 2016-09-15 19:00 | NUR ---
REPORT RECIEVED, SHIFT ASSESSMENT COMPLETE, PT IS SEDATED ON VENT, ON 50% FIO2 WITH 97% O2 SAT. RHONCHI/CRACKLES HEARD IN B/L UPPER LOBES, DIMINISHED IN B/L LOWER LOBES, S1S2, CM-NSR, PATENT NGT WITH BROWN DRAINAGE NOTED, PATENT LEFT IJ TRIALYSIS...SEE FLOW SHEET...PATENT LEFT NAVEED WITH GOOD WAVEFORM, EXTREMETY IS PINK AND WARM, ABDOMEN IS SOFT AND ROUND WITH HYPO BS, PATENT F/C WITH CONCENTRATED UOP, NO EDEMA NOTED, ALL PPP, WILL CON'T TO MONITOR
--- NOTE | 2016-09-15 21:15 | NUR ---
FAMILY AT BEDSIDE, UPDATE GIVEN
--- NOTE | 2016-09-15 23:00 | NUR ---
REASSESSMENT COMPLETE, NO CHANGES NOTED, PT RESTING AT THIS TIME, REPOSITIONED FOR COMFORT, ORAL CARE PROVIDED
[2016-09-16] VITALS (24 sets, daily range): BP systolic 99–147; BP diastolic 57–101
--- NOTE | 2016-09-16 03:00 | NUR ---
REASSESSMENT COMPLETE, NO CHANGES NOTED, REPOSITIONED FOR COMFORT, ORAL CARE PROVIDED.
[2016-09-16 04:49] LABS: BASOPHILS 0.1 % (0.0-2.0); EOSINOPHILS 0.2 % (0-7); HEMATOCRIT 26.4 % (42.0-54.0); HEMOGLOBIN 8.9 g/dL (13.5-17.5); IMMATURE GRANULOCYTES 0.5 % (0-5); LYMPHOCYTES 13.3 % (15-50); MCH 28.5 pg (26.0-34.0); MCHC 33.7 g/dL (31.0-37.0); MCV 84.6 fL (80.0-100.0); MEAN PLATELET VOLUME 10.2 fL (7.4-10.4); MONOCYTES 7.4 % (2-11); NEUTROPHILS 78.5 % (40-80); PLATELET COUNT 145 10x3/uL (130-400); RBC 3.12 10x6/uL (4.20-6.10); RDW 13.7 % (11.5-14.5); WBC 12.8 10x3/uL (4.8-10.8)
[2016-09-16 05:16] LABS: ALBUMIN 2.1 g/dL (3.4-5.0); ALKALINE PHOSPHATASE 74 U/L (46-116); ALT (SGPT) 25 U/L (10-68); CARBON DIOXIDE 25.5 mmol/L (21.0-32.0); CHLORIDE - SERUM 93 mmol/L (98-107); CKMB 2.4 U/L (0.0-3.6); CREATININE - SERUM 6.3 mg/dL (0.6-1.3); MAGNESIUM - SERUM 2.6 mg/dL (1.8-2.4); PROTEIN - SERUM 5.3 g/dL (6.4-8.2); SODIUM 129 mmol/L (136-145); THYROID STIMULATING HORMONE 1.26 uIU/mL (0.36-3.74); UREA NITROGEN 63 mg/dL (7-18); eGFR NON AFRICAN AMERICAN 10 mL/min (90-120)
[2016-09-16 05:22] LABS: CALC OSMOLALITY 281 mosm/kg (275-300); GLUCOSE 180 mg/dL (74-106); POTASSIUM - SERUM 4.5 mmol/L (3.5-5.1); PRO BNP 31099 pg/mL (0-125)
[2016-09-16 05:23] LABS: TROPONIN-I 6.345 ng/mL (0.000-0.060)
--- NOTE | 2016-09-16 19:00 | NUR ---
1900: Pt remains sedated with diprivan on vent. Pt is unresponsive to verbal/painfull stimuli. ETT taped intact 8.0fr at 27cm lip line Vent AC 16/600/40%P8 with Pt RR16x with SPO2 98%. Lungs with crackles heard throughout LF bilaterally with auscultation. MMP and no cyanosis noted. Pt S1S2 regular with SBP 90-100 per Left Radial ART line that is transduced to CM. Left Jugular Trialysis cath intact with Lidocaine 0.5 mg/min infusing with Diprivan and NS. Pt has generalized edema in all extrem. Pt remains in bilateral soft wrist restraints to prevent accidental/sudden extubation. NGT position confirmed with 30 cc air bolus and auscultation returned to LIS. All alarms and montitors intact. Bed alarm audible.
--- NOTE | 2016-09-16 21:00 | NUR ---
2100: Pt family at bedside. Discussed care with famiy at length. Verbalized understanding. No change in Pt resp/cv/nv status. No change in IVF/UOP. Pt remains SR on CM 70's.
[2016-09-17] VITALS (24 sets, daily range): BP systolic 93–125; BP diastolic 34–77
--- NOTE | 2016-09-17 | NUR ---
0000: No change in Pt RESP/CV/NV status. No change in IVF/UOP. Pt remains SR 70's with SBP 90-100 per Radial ART line. Oral care done per RT. Ramos care and SCD care done.
--- NOTE | 2016-09-17 03:00 | NUR ---
0300: Repositioned pt for comfort at this time. Oral care done per RT. No change in RESP/CV/NV status. No change in IVF. Pt remains SR on CM with SBP 90-100 per Left radial ART line.
[2016-09-17 03:58] LABS: BASOPHILS 0.1 % (0.0-2.0); EOSINOPHILS 0.6 % (0-7); HEMATOCRIT 26.3 % (42.0-54.0); HEMOGLOBIN 8.8 g/dL (13.5-17.5); IMMATURE GRANULOCYTES 0.4 % (0-5); LYMPHOCYTES 8.8 % (15-50); MCH 28.5 pg (26.0-34.0); MCHC 33.5 g/dL (31.0-37.0); MCV 85.1 fL (80.0-100.0); MEAN PLATELET VOLUME 10.4 fL (7.4-10.4); MONOCYTES 8.2 % (2-11); NEUTROPHILS 81.9 % (40-80); PLATELET COUNT 161 10x3/uL (130-400); RBC 3.09 10x6/uL (4.20-6.10); RDW 13.8 % (11.5-14.5); WBC 12.9 10x3/uL (4.8-10.8)
[2016-09-17 04:18] LABS: ANION GAP 17.1 mmol/L (8-16); CALCIUM 7.9 mg/dL (8.5-10.1); CARBON DIOXIDE 23.9 mmol/L (21.0-32.0); CREATININE - SERUM 6.7 mg/dL (0.6-1.3); PHOSPHOROUS 8.5 mg/dL (2.5-4.9)
--- NOTE | 2016-09-17 05:00 | NUR ---
0500: Sedation vacation complete. Pt grimmaces with temp and sx, but does not follow commands. Diprivan restarted at 15 mcg/kg/min 8.6cc/hr.
--- NOTE | 2016-09-17 06:00 | NUR ---
0600: Family here at bedside. Update provided.
--- NOTE | 2016-09-17 11:30 | NUR ---
Nutrition Follow Up: Spoke with nursing who reported that TF was ready to begin - order just needed to be placed. Meds and labs noted. Will put order in to start TF of Nepro @ 20 ml/hr. Increase 10 ml every 12 hours to goal rate of 55 ml/hr. Water flushes 15 ml/hr. RD will continue to monitor pt progress.
--- NOTE | 2016-09-17 15:28 | NUR ---
0715-RECIEVED PER FLOW SHEET-NOTED SR ON MONITOR-L 3LTESIO NURSE PORT INFUSING-DIPRIVAN AT 10MCG-INCREASED TO 15 MCG FOR ABDOULAYE OF 1-2-NOTED LIDOCAINE INFUSION AT 0.5MG-VIA PUMP-GIL CATH IN PLACE -CLEAR CHRISTIAN URINE-RESPONDS TO TACTILE STIMULUS-WITH GENERAL MOVEMENT 0810-DR KAPOOR CALLED UNIT-LIDOCAINE DRIP D/C'D ORDERED-DIALYSIS NURSE NOTIFIED OF SCHEDULED DIALYSIS -TENTATIVE PLAN TO SCHEDULE IN MID AFTERNOON HOURS 0900-FAMILY AT BEDSIDE AND REVIEWED PLAN OF CARE-FAMILY EXPRESSED STRONG CONCERN WITH PT STABILITY DURING DIALYSIS-SPOKE WITH DIALYSIS NURSE AND APPEARED CALMER AT PLANNED APPROACH-
--- NOTE | 2016-09-17 16:09 | NUR ---
Mr. Sparrow had bedside hemodialysis today via his left IJ Trialysis from 1342 until 1545. Average blood flow was 300 mls/minute per orders. Removed zero net fluid per orders. No problems occured. Post vital signs were: B/P:108/59, HR:75, Temp:97.8, Resps:16.
--- NOTE | 2016-09-17 18:54 | NUR ---
1350-DIALYSIS STARTED AND DAUGHTER NOTIFIED REQUESTED 1400-NOTIFIED OF STABILITY ON DIALYSIS-FAMILY REQUESTED 1620-FAMILY NOTIFIED OF COMPLETION OF DIALYSIS AND BROUGHT TO BEDSIDE 1700-NEPRO STARTED AT 10ML/H-NGT PLACEMENT CONFIRMED WITH ASPIRATE BILE AND AIR BOLUS 1800-FAMILY AT BEDSIDE AND QUESTIONS ADDRESSED
--- NOTE | 2016-09-17 20:00 | NUR ---
1999: Pt remains on vent and sedated with Diprivan gtt. Pt remains SR on CM 70-80bpm. No ectopy seen at this time. Left radial ART line intact and transduced to CM with proper w/f and monitorring. SBP 90's. NGT with Nepro at 10 cc/hr. NGT position confirmed with 30 cc air bolus and auscultation. Ramos to gravity with >30 cc/hr yellow UOP.
--- NOTE | 2016-09-17 21:00 | NUR ---
2100: Family here at bedside. Update provided and verblaized understanding.
[2016-09-18] VITALS (24 sets, daily range): BP systolic 85–168; BP diastolic 44–87
--- NOTE | 2016-09-18 | NUR ---
0000: Pt oral care, iniguez care, and SCD care compelted at this time. No change in pt RESP/CV/NV status. No change in IVF/UOP. Pt remains SR on CM 70's with no ectopy seen. BP as per ART line remains >100 at this time.
--- NOTE | 2016-09-18 03:00 | NUR ---
0300: Bath and linen change done. Oral care, Ramos care done. Pt coughing increased with movement. ETT elevated with pillow support. Pt repositioned for comfort as well with extrem off bed with pillow supports. Pt remains SR with no ectopy seen on CM 70's. No change in Vent settings and pt remains with [id number] with SPo2 97-98%.
[2016-09-18 05:20] LABS: BASOPHILS 0.1 % (0.0-2.0); EOSINOPHILS 1.2 % (0-7); HEMATOCRIT 27.5 % (42.0-54.0); HEMOGLOBIN 8.9 g/dL (13.5-17.5); IMMATURE GRANULOCYTES 0.4 % (0-5); LYMPHOCYTES 6.9 % (15-50); MCH 28.1 pg (26.0-34.0); MCHC 32.4 g/dL (31.0-37.0); MCV 86.8 fL (80.0-100.0); MEAN PLATELET VOLUME 10.4 fL (7.4-10.4); MONOCYTES 8.3 % (2-11); NEUTROPHILS 83.1 % (40-80); PLATELET COUNT 164 10x3/uL (130-400); RBC 3.17 10x6/uL (4.20-6.10); RDW 13.9 % (11.5-14.5); WBC 13.2 10x3/uL (4.8-10.8)
[2016-09-18 05:23] LABS: ANION GAP 13.2 mmol/L (8-16); CALCIUM 7.9 mg/dL (8.5-10.1); CARBON DIOXIDE 28.6 mmol/L (21.0-32.0); POTASSIUM - SERUM 3.8 mmol/L (3.5-5.1)
[2016-09-18 05:36] LABS: CREATININE - SERUM 4.5 mg/dL (0.6-1.3); PHOSPHOROUS 5.9 mg/dL (2.5-4.9)
--- NOTE | 2016-09-18 06:00 | NUR ---
0600: Family here at bedside. Update provided and verbalized understanding.
--- NOTE | 2016-09-18 19:00 | NUR ---
SHIFT ASSESSMENT COMPLETE, PT IS SEDATED ON VENT, ON 40% FIO2 WITH 97% O2 SAT. LUNGS CLEAR IN B/L UPPER LOBES, DIMINISHED IN B/L LOWER LOBES, S1S2, CM-NSR, PATENT RIGHT NARE NGT WITH NEPRO INFUSING @ 45 ML/HR, 5 RESIDUAL NOTED INCREASED TF TO 55 ML/HR VIA PUMP, PATENT LEFT NAVEED, GOOD WAVEFORM, EXTREMETY IS PINK AND WARM, PATENT LEFT IJ TRIALYSIS CATH...SEE FLOW SHEET...ABDOMEN IS SOFT AND ROUND WITH ACTIVE BS, PATENT F/C WITH YELLOW UOP, EDEMA NOTED IN ALL EXTREMETIES, ALL PPP, VSS, WILL CON'T TO MONITOR
--- NOTE | 2016-09-18 21:00 | NUR ---
FAMILY AT BEDSIDE,UPDATE GIVEN
--- NOTE | 2016-09-18 23:45 | NUR ---
REASSESSMENT DONE. NO CHANGES NOTED.
[2016-09-19] VITALS (24 sets, daily range): BP systolic 93–146; BP diastolic 53–90
--- NOTE | 2016-09-19 01:30 | NUR ---
PT TOLERATING GOAL TUBE FEEDING.
--- NOTE | 2016-09-19 03:22 | NUR ---
PT HAD BOWEL MOVEMENT. PT HAD COMPLETE BATH AND LINEN CHANGE. TOLERATED WELL. JAVY CARE GIVEN. GIL CATH CARE GIVEN WITH SURE STEP GIL WIPE.
[2016-09-19 03:47] LABS: BASOPHILS 0.1 % (0.0-2.0); EOSINOPHILS 1.9 % (0-7); HEMATOCRIT 25.5 % (42.0-54.0); HEMOGLOBIN 8.3 g/dL (13.5-17.5); IMMATURE GRANULOCYTES 0.3 % (0-5); LYMPHOCYTES 10.1 % (15-50); MCH 28.5 pg (26.0-34.0); MCHC 32.5 g/dL (31.0-37.0); MCV 87.6 fL (80.0-100.0); MEAN PLATELET VOLUME 10.5 fL (7.4-10.4); MONOCYTES 9.1 % (2-11); NEUTROPHILS 78.5 % (40-80); PLATELET COUNT 168 10x3/uL (130-400); RBC 2.91 10x6/uL (4.20-6.10); RDW 14.2 % (11.5-14.5); WBC 12.1 10x3/uL (4.8-10.8)
[2016-09-19 03:58] LABS: CALCIUM 7.7 mg/dL (8.5-10.1); CARBON DIOXIDE 30.4 mmol/L (21.0-32.0); CREATININE - SERUM 4.4 mg/dL (0.6-1.3); PHOSPHOROUS 5.4 mg/dL (2.5-4.9); POTASSIUM - SERUM 3.4 mmol/L (3.5-5.1)
--- NOTE | 2016-09-19 05:55 | NUR ---
PT HAD BOWEL MOVEMENT. LIQUID BROWN STOOL NOTED. PT CLEANED AND PADS CHANGED. REDNESS NOTED TO JAVY-AREA. PASTE APPLIED TO JAVY-AREA.
--- NOTE | 2016-09-19 12:01 | NUR ---
Nutrition follow-up: Pt intubated, sedated with propofol Nepro decreased to 45 ml/hr due to pt being overfed at 55 ml/hr with propofol labs reviewed RDN following.
[2016-09-19 15:19] LABS: EHRLICHIA CHAFF IGG Negative (Neg:<1:64); EHRLICHIA CHAFF IGM Negative (Neg:<1:20); HGE IGG TITER Negative (Neg:<1:64); HGE IGM TITER Negative (Neg:<1:20)
--- NOTE | 2016-09-19 19:15 | NUR ---
SHIFT ASSESSMENT COMPLETE, PT SEDATED ON VENT, ON 40% FIO2 WITH 97% O2 SAT. LUNGS CLEAR IN B/L UPPER LOBES, DIMINISHED IN B/L LOWER LOBES, S1S2, CM-NSR, PATENT RIGHT NARE NGT WITH NEPRO INFUSING VIA PUMP, PATENT LEFT IJ TRIALYSIS CATH...SEE FLOW SHEET, PATENT LEFT RADIAL NAVEED, GOOD WAVEFORM, ABDOMEN IS SOFT AND ROUND WITH ACTIVE BS, PATENT F/C WITH YELLOW UOP, PATENT RECTAL TUBE WITH BROWN DRAINGE NOTED, ALL PPP, VSS, WILL CON'T TO MONITOR
--- NOTE | 2016-09-19 21:00 | NUR ---
NO VISITORS AT THIS TIME, HS MEDS GIVEN, WILL CON'T TO MONITOR
--- NOTE | 2016-09-19 23:15 | NUR ---
REASSESSMENT COMPLETE, NO CHANGES NOTED, REPOSITIONED FOR COMFORT, ORAL CARE PROVIDED, VSS, WILL CON'T TO MONITOR
[2016-09-20] VITALS (24 sets, daily range): BP systolic 91–129; BP diastolic 47–80
--- NOTE | 2016-09-20 01:08 | NUR ---
REPOSITIONED FOR COMFORT, ORAL CARE PROVIDED, WILL CON'T TO MONITOR
[2016-09-20 03:13] LABS: BASOPHILS 0.1 % (0.0-2.0); EOSINOPHILS 3.8 % (0-7); HEMATOCRIT 26.6 % (42.0-54.0); HEMOGLOBIN 8.3 g/dL (13.5-17.5); IMMATURE GRANULOCYTES 0.4 % (0-5); LYMPHOCYTES 11.2 % (15-50); MCH 27.7 pg (26.0-34.0); MCHC 31.2 g/dL (31.0-37.0); MCV 88.7 fL (80.0-100.0); MEAN PLATELET VOLUME 9.4 fL (7.4-10.4); MONOCYTES 9.6 % (2-11); NEUTROPHILS 74.9 % (40-80); PLATELET COUNT 185 10x3/uL (130-400); WBC 11.2 10x3/uL (4.8-10.8)
[2016-09-20 03:25] LABS: % SATURATION 14 % (15-55); IRON 23 ug/dl (35-150); TOTAL IRON BIND CAPACITY 158 ug/dl (260-445); UNSAT IRON BIND CAPACITY 135 ug/dl (150-375)
[2016-09-20 03:36] LABS: ANION GAP 7.6 mmol/L (8-16); CALCIUM 7.8 mg/dL (8.5-10.1); CARBON DIOXIDE 34.4 mmol/L (21.0-32.0); CREATININE - SERUM 3.8 mg/dL (0.6-1.3)
--- NOTE | 2016-09-20 06:00 | NUR ---
PT'S AT BEDSIDE. UPDATED ON PT'S STATUS.
[2016-09-20 15:18] LABS: RMSF IGM 0.33 index (0.00-0.89)
--- NOTE | 2016-09-20 19:42 | NUR ---
REPORT RECIEVED. ASSESSMENT COMPLETE PER FLOW SHEET. VSS. NO NEW FINDINGS. PT GIVEN ICE CHIPS FOR COMOFRT. REPOSOTIONED IN R SIDE. NEEDS MET.
--- NOTE | 2016-09-20 20:55 | NUR ---
L WRIST A LINE D.C.'D CATH INTACT. DRSG APPLIED. CDI
--- NOTE | 2016-09-20 21:20 | NUR ---
FAMILY AT BEDSIDE. GIVEN UDPATE.
--- NOTE | 2016-09-20 23:08 | NUR ---
REASSESSMENT COMPLETE, NO CHANGES NOTED, PT RESTING AT THIS TIME, NO NEEDS NOTED, VSS, CALL LIGHT IN REACH
[2016-09-21] VITALS (24 sets, daily range): BP systolic 106–126; BP diastolic 64–78
--- NOTE | 2016-09-21 01:24 | NUR ---
PT SLEEPING COMFORTABLY. VSS .NO NEW CHNAGES. WILL CONTINUE TO MONITOR.
--- NOTE | 2016-09-21 03:06 | NUR ---
REASSESSMENT COMPLETE PER LFOW SHEET. VSS. NO NEW CHANGES AT THIS TIME. GIVEN ICE CHIPS PER REQUEST. DENIES FURTHER NEEDS.
[2016-09-21 04:13] LABS: MAGNESIUM - SERUM 2.5 mg/dL (1.8-2.4); PHOSPHOROUS 4.8 mg/dL (2.5-4.9)
--- NOTE | 2016-09-21 05:02 | NUR ---
PT NOTED IN V TACH. STERNAL RUB ADM PT LETHARGIC NON RESPONSIVE, NO PULSE FOUND, CPR ADM. SEE CODE BLUE SHEET.
--- NOTE | 2016-09-21 05:20 | NUR ---
DR. DUARTE NOTED OF CHANGE IN PT STATUS BY DR. HE, NEW ORDERS RECIEVED,
--- NOTE | 2016-09-21 05:30 | NUR ---
UPDATE CALLED TO FAMILY AT THIS TIME
--- NOTE | 2016-09-21 07:00 | NUR ---
REPORT RECEIVED, ASSESSMENT COMPLETED. NO NEEDS VOICED AT THIS TIME.
--- NOTE | 2016-09-21 07:37 | NUR ---
PATIENT TAKEN OFF THE NRB AFTER GAS RESULTS IN. NOW ON 4L N/C AND IS SATING 96-97%.
--- NOTE | 2016-09-21 08:00 | NUR ---
URINE SPECIMINE COLLECTED FROM GIL ORDERED.
--- NOTE | 2016-09-21 08:02 | NUR ---
SPOKE BRIEFLY WITH PATIENT, SECONDARY TO BEING TOLD IN REPORT THAT THE PATIENT ORIGINALLY REFUSED TO GO TO THE [facility], AND THERE WAS A CHANCE HE NEEDED A PACEMAKER WITH DEFIBULATOR. HE STATED HE WOULD GO IF THAT IS WHAT HE NEEDED.
[2016-09-21 08:12] LABS: BASOPHILS 0.2 % (0.0-2.0); EOSINOPHILS 1.3 % (0-7); HEMATOCRIT 27.5 % (42.0-54.0); HEMOGLOBIN 8.6 g/dL (13.5-17.5); IMMATURE GRANULOCYTES 0.5 % (0-5); LYMPHOCYTES 9.8 % (15-50); MCH 28.5 pg (26.0-34.0); MCHC 31.3 g/dL (31.0-37.0); MEAN PLATELET VOLUME 9.6 fL (7.4-10.4); MONOCYTES 7.5 % (2-11); NEUTROPHILS 80.7 % (40-80); PLATELET COUNT 197 10x3/uL (130-400); RBC 3.02 10x6/uL (4.20-6.10); RDW 14.1 % (11.5-14.5); WBC 12.8 10x3/uL (4.8-10.8)
[2016-09-21 08:17] LABS: ALBUMIN 2.2 g/dL (3.4-5.0); ANION GAP 12.6 mmol/L (8-16); BILIRUBIN - TOTAL 0.52 mg/dL (0.2-1.3); CARBON DIOXIDE 30.9 mmol/L (21.0-32.0); CREATININE - SERUM 3.1 mg/dL (0.6-1.3); PROTEIN - SERUM 5.4 g/dL (6.4-8.2)
[2016-09-21 08:23] LABS: POTASSIUM - SERUM 3.5 mmol/L (3.5-5.1)
[2016-09-21 08:26] LABS: MCV 91.1 fL (80.0-100.0)
--- NOTE | 2016-09-21 10:41 | NUR ---
PATIENTS TRIALYSIS DRESSING CHANGED PER PROTOCOL.
--- NOTE | 2016-09-21 11:01 | NUR ---
Nutrition follow-up: Pt NPO at this time due to code blue TF on hold Labs reviewed Wt: 209# RDN following.
--- NOTE | 2016-09-21 12:00 | NUR ---
PATIENT DID WELL WITH CLEAR LIQUID DIET. REQUESTED MORE FOOD. DID WELL WITH FULL LIQUIDS TOO. INCREASED TO REGULAR DIET FOR DINNER.
--- NOTE | 2016-09-21 13:44 | NUR ---
PATIENT CURRENTLY STANDING AT BEDSIDE WITH PHYSICAL THERAPY.
--- NOTE | 2016-09-21 13:49 | NUR ---
PATIENT DID WELL STANDING WITH PHYSICAL THERAPY. HEART RYTHUM REMAINED IN SINUS. THERE WAS NO REAL CHANGE IN RATE. PATIENT STATED "IT FELT GOOD". WILL MONITOR. AT THIS TIME HE IS REFUSING TO HAVE THE SCD'S PUT BACK ON. WILL WORK WITH HIM ON THE IMPORTANCE OF WEARING THEM. HE IS ON LOVENOX.
--- NOTE | 2016-09-21 19:05 | NUR ---
REPORT RECIEVED, SHIFT ASSESSMENT COMPLETE, PT IS ALERT AND ORIENTED, ON 4L NC WITH 97% O2 SAT. LUNGS CLEAR IN B/L UPPER LOBES, DIMINISHED IN B/L LOWER LOBES, S1S2, CM-NSR, PATENT LEFT IJ TRIALYSIS...SEE FLOW SHEET...ABDOMEN IS SOFT AND ROUND WITH ACTIVE BS, PATENT F/C WITH YELLOW UOP, EDEMA NOTED IN ALL EXTREMETIES, ALL PPP, VSS, CALL LIGHT IN REACH
--- NOTE | 2016-09-21 22:16 | NUR ---
FAMILY AT BEDSIDE, UPDATE GIVEN
--- NOTE | 2016-09-21 23:01 | NUR ---
REASSESSMENT COMPLETE, NO CHANGES NOTED, PT RESTING COMFORTABLY AT THIS TIME, NO NEEDS NOTED,
[2016-09-22] VITALS (24 sets, daily range): BP systolic 81–113; BP diastolic 60–78
--- NOTE | 2016-09-22 01:00 | NUR ---
REPOSITIONED FOR COMFORT, WILL CON'T TO MONITOR
--- NOTE | 2016-09-22 03:00 | NUR ---
REASSESSMENT COMPLETE, NO CHANGES NOTED, PT RESTING AT THIS TIME, VSS, CALL LIGHT IN REACH
[2016-09-22 04:19] LABS: BASOPHILS 0.3 % (0.0-2.0); EOSINOPHILS 0.8 % (0-7); HEMATOCRIT 27.1 % (42.0-54.0); HEMOGLOBIN 8.4 g/dL (13.5-17.5); IMMATURE GRANULOCYTES 0.6 % (0-5); LYMPHOCYTES 14.2 % (15-50); MCH 28.2 pg (26.0-34.0); MCV 90.9 fL (80.0-100.0); MEAN PLATELET VOLUME 9.5 fL (7.4-10.4); NEUTROPHILS 74.1 % (40-80); PLATELET COUNT 203 10x3/uL (130-400); RBC 2.98 10x6/uL (4.20-6.10); RDW 13.8 % (11.5-14.5)
[2016-09-22 04:31] LABS: ANION GAP 9.5 mmol/L (8-16); CARBON DIOXIDE 32.7 mmol/L (21.0-32.0); CREATININE - SERUM 3.3 mg/dL (0.6-1.3); POTASSIUM - SERUM 3.2 mmol/L (3.5-5.1)
[2016-09-22 04:34] LABS: CALCIUM 7.9 mg/dL (8.5-10.1)
--- NOTE | 2016-09-22 05:21 | NUR ---
REPOSITIONED FOR COMFORT, NO OTHER NEEDS NOTED, WILL OCN'T TO MONITOR
--- NOTE | 2016-09-22 07:00 | NUR ---
REPORT RECEIVED. ASSESSMENT COMPLETED. PATIENT SITTING UP IN BED WITH NO NEEDS VOICED AT THIS TIME.
--- NOTE | 2016-09-22 10:21 | NUR ---
Nutriiton follow-up: Diet has advanced to regular and pt is tolerating at this time. Will provide food choices with selective menus and honor food preferences. RDN following.
--- NOTE | 2016-09-22 10:39 | NUR ---
SPOKE WITH DR NORMAN ABOUT PATIENTS COUGHING FITS. HE STATED HE WOULD GET HIM SOMETHING.
--- NOTE | 2016-09-22 11:32 | NUR ---
PATIENT SAT UP ALMOST 3 HOURS. BACK IN BED WITHOUT COMPLAINTS AT THIS TIME.
--- NOTE | 2016-09-22 13:06 | NUR ---
DC'D 18 FR GIL WITH TIP INTACT. PATIENT TOLERATED WELL.
--- NOTE | 2016-09-22 14:15 | NUR ---
DC'D PATIENT RECTAL TUBE. THERE IS BARELY MORE IN THE BAG THAN THE LINE DRAWN BY THIS NURSE YESTERDAY.
--- NOTE | 2016-09-22 14:21 | NUR ---
PATIENT SITTING UP IN CHAIR AT BEDSIDE.
--- NOTE | 2016-09-22 17:40 | NUR ---
PATIENT EATING DINNER, WENT INTO A COUGHING FIT, WENT INTO VTACH, STOPPED BREATHING, NO PALPABLE PULSE, CODE BLUE CALLED. SEE CODE BLUE SHEET.
--- NOTE | 2016-09-22 18:08 | NUR ---
SPOKE WITH DR MCCABE ABOUT CODE BLUE, NEW ORDERS RECEIVED. SPOKE ABOUT THIS WITH HIS . SHE IS NOT HAPPY. SHE STATED, "SOMETHING HAS TO BE DONE, WE HAVE TO STOP THE COUGHING." IT WAS EXPLAINED AGAIN THAT DR NORMAN HAS ORDERED COUGH MEDICATION TO HELP WITH THE COUGH, BUT IT WILL TAKE TIME. SHE IS PACING IN THE ROOM. OXYMIZER INCREASED TO 11L AND THEN PATIENT WAS PLACED ON A NONREBREATHER SECONDARY TO NOT BEING ABLE TO GET SATS OUT OF THE 80'S. DR SOLORIO HAS ALSO BEEN PAGED. WILL WAIT FOR RETURN CALL.
--- NOTE | 2016-09-22 18:16 | NUR ---
DR SOLORIO NOTIFIED OF CODE BLUE. REQUEST THAT DR NORMAN BE NOTIFIED.
--- NOTE | 2016-09-22 18:21 | NUR ---
DR NORMAN NOTIFIED. RECOMMENDED THAT DR MCCABE HANDLE ORDERS IN REGARDS TO VTACH. INSTRUCTED TO CALL BACK IF NEEDED.
[2016-09-22 19:29] LABS: ALBUMIN 2.2 g/dL (3.4-5.0); ANION GAP 10.6 mmol/L (8-16); BILIRUBIN - TOTAL 0.56 mg/dL (0.2-1.3); CARBON DIOXIDE 30.7 mmol/L (21.0-32.0); CREATININE - SERUM 3.4 mg/dL (0.6-1.3); POTASSIUM - SERUM 3.3 mmol/L (3.5-5.1)
[2016-09-22 19:40] LABS: MAGNESIUM - SERUM 2.6 mg/dL (1.8-2.4)
--- NOTE | 2016-09-22 19:57 | NUR ---
reported cmp to dr ray. orders recvd for electrolyte protocol.
--- NOTE | 2016-09-22 20:00 | NUR ---
191- REPORT RECVD. CARE ASSUMED. INITIAL ASSMNT COMPLETED. SEE FLOWSHEET FOR ALL FINDINGS. AWAKE AND AOX4. RESP SHALLOW ON 15LPM NRB. FREQ COUGH SEEN. LUNGS COARSE THRU OUT. SPO2 91%. SR ON THE MONITOR. PULSES PALP. DENIES DISCOMFORT. ABD SOFT, BSA X4. BLADDER NON PALP. VOIDING TO URINAL. REPOSITIONING SELF INDEPENDENTLY IN BED. HOB UP. C/L IN REACH. CONT CURRENT POC. 1999- DR SOLORIO AT BEDSIDE. NO NEW ORDERS.
--- NOTE | 2016-09-22 23:15 | NUR ---
2100- HS MEDS GIVEN. T BEDSIDE. UPDATE GIVEN. VSS. SR ON THE MONITOR. SPO2 91%. 2315-REASSESSMENT COMPLETED. SEE FLOWSHEET FOR ALL FINDINGS. RESTING.AOX4. RESP SHALLOW ON 15LPM NRB. FREQ COUGH SEEN. LUNGS COARSE THRU OUT. SPO2 91%. SR ON THE MONITOR. PULSES PALP. DENIES DISCOMFORT. ABD SOFT, BSA X4. BLADDER NON PALP. VOIDING TO URINAL. REPOSITIONING SELF INDEPENDENTLY IN BED. HOB UP. C/L IN REACH. CONT CURRENT POC.
[2016-09-23] VITALS (33 sets, daily range): BP systolic 90–138; BP diastolic 33–95
--- NOTE | 2016-09-23 01:15 | NUR ---
RESTING WITH NO DISTRESS. OCC METAL CAN INSPECTOR COUGH. SR ON THE MONITOR. REMAINS ON NRB. RT UNABLE TO WEAN, SPO2 91%
--- NOTE | 2016-09-23 03:15 | NUR ---
REASSESSMENT COMPLETED. SEE FLOWSHEET FOR ALL FINDINGS. RESTING.AOX4. RESP SHALLOW ON 15LPM NRB. FREQ COUGH SEEN. LUNGS COARSE THRU OUT. SPO2 91%. SR ON THE MONITOR. PULSES PALP. DENIES DISCOMFORT. ABD SOFT, BSA X4. BLADDER NON PALP. VOIDING TO URINAL. REPOSITIONING SELF INDEPENDENTLY IN BED. HOB UP. C/L IN REACH. CONT CURRENT POC.
[2016-09-23 04:15] LABS: BASOPHILS 0.2 % (0.0-2.0); EOSINOPHILS 0.4 % (0-7); HEMATOCRIT 28.3 % (42.0-54.0); HEMOGLOBIN 8.7 g/dL (13.5-17.5); IMMATURE GRANULOCYTES 0.9 % (0-5); MCH 27.7 pg (26.0-34.0); MCHC 30.7 g/dL (31.0-37.0); MCV 90.1 fL (80.0-100.0); MEAN PLATELET VOLUME 9.8 fL (7.4-10.4); MONOCYTES 9.3 % (2-11); NEUTROPHILS 79.2 % (40-80); PLATELET COUNT 230 10x3/uL (130-400); RBC 3.14 10x6/uL (4.20-6.10); RDW 13.7 % (11.5-14.5); WBC 13.5 10x3/uL (4.8-10.8)
[2016-09-23 04:27] LABS: ANION GAP 11.2 mmol/L (8-16); CALCIUM 8.3 mg/dL (8.5-10.1); CARBON DIOXIDE 30.6 mmol/L (21.0-32.0); CREATININE - SERUM 3.4 mg/dL (0.6-1.3); MAGNESIUM - SERUM 2.8 mg/dL (1.8-2.4)
[2016-09-23 04:34] LABS: POTASSIUM - SERUM 3.8 mmol/L (3.5-5.1)
--- NOTE | 2016-09-23 05:30 | NUR ---
DYSPNEA SEEN. REPOSITIONED. COUGH ENCOURAGED. SPO2 91% ON 15LOM NRB. ST ON THE MONITOR. HOB UP. C/L IN REACH. CONT CURRENT P0C.
--- NOTE | 2016-09-23 06:00 | NUR ---
DR MCCABE AT BEDSIDE. REPORTED CURRENT K+ LEVEL, HR, SPO2 AND DYSPNEA. NO NEW ORDERS AT THIS TIME,
--- NOTE | 2016-09-23 07:00 | NUR ---
REPORT RECEIVED. ASSESSMENT COMPLETED. PATIENT IS IN HIGHFOWLERS POSITION, REALLY STRUGGLING TO BREATH. USING MULTIPLE ACCESSORY MUSCLES. CHEST IS CLEAR BUT SOUNDS TIGHT IN BILATERAL LOWER LOBES. SATS ARE 91% ON 15L NRB. PATIENT HAS STATED THAT HE IS AFRAID TO SLEEP THAT HE IS GOING TO AND MAY NOT COME BACK. STAYED WITH PATIENT AND TALKED WITH HIM. PATIENT DID BECOME TEARFUL. HE SAID THAT HE DID NOT CARE ABOUT HIS KIDNEYS OR HIS LUNGS, HE JUST WANTED HIS HEART FIXED. HE C/O PAIN MID STERNUM FROM THE CHEST COMPRESSIONS. AFTER PATIENT CALMED DOWN, COUGH SYRUP GIVEN PER PRN ORDERS.
--- NOTE | 2016-09-23 07:25 | NUR ---
DR SAMANTA GARCIA. AFTER GIVING COUGH SYRUP IT WAS NOTED THAT HR WAS RANGING 118-123, RR 28-36, SATS 87-89% ON THE NRB AND WOULD NO BETTER WITH COUGH OR REPOSITIONING.
--- NOTE | 2016-09-23 07:29 | NUR ---
SPOKE WITH DR ENGLAND, NEW ORDERS RECEIVED.
--- NOTE | 2016-09-23 07:46 | NUR ---
PLACED A 16FR GIL USING STERILE TECHNIQUE AFTER EXPLAINING IT TO THE PATIENT. RECEIVED ALMOST 200 ML OF CLEAR DARK YELLOW URINE. PATIENT TOLERATED WELL. PATIENT HAS CLUMPED PATCHES OF WHAT LOOKS LIKE BUTT PASTE TO HIS INNER THIGHS, THAT HE SAID WAS SORE TO REMOVE. CLEANED WHAT COULD OFF. AREA IS REDDENED. PATIENT SAID ONLY NOTICED IT WHEN I TRIED TO CLEAN IT.
--- NOTE | 2016-09-23 09:07 | NUR ---
HERE FOR VISITATION. SHE IS UPSET WITH THE WAY HER WORKS. UPDATE GIVEN ON THE EVENTS OF THIS MORNING. EXPLAINED THAT EVEN THOUGH THE PATIENT LOOKS BAD, HE IS BETTER THAN HE WAS EARLIER. SHE SAID THAT SHE WANTS HIM TRANSFERRED TO [place] SO SOMETHING ELSE CAN BE DONE. RICHARD GEIGER WITH DR MCCABE HERE. EXPLAINED THIS TO HER. SHE TALKED WITH THE . SAID THERE IS A DR ISA CANALES AT [facility] [place] IN [place] THAT HAS SAID HE WOULD TAKE THE PATIENT. SHE STATED THAT SHE DOES NOT FEEL THE PATIENT IS STABLE FOR TRANSPORT, BUT IF THE PRIMARY WANTS TO TRANSFER, IT IS OK FROM THEIR STANDPOINT.
--- NOTE | 2016-09-23 09:09 | NUR ---
Nutrition follow-up: Diet: ADA consistent CHO PO intake ~50% of meals; pt is s/p code blue 09/22/16 Labs reviewed Wt: 205# Will provide food choices and honor food preferences. RDN following.
--- NOTE | 2016-09-23 09:25 | NUR ---
SPOKE WITH DR SOLORIO AND EXPLAINED THE SITUTATION TO HIM. HE STATED TO SEE IF THIS DOCTOR WAS WILLING TO ACCEPT THIS PATIENT OR NOT AND WE WOULD GO FROM THERE.
--- NOTE | 2016-09-23 09:30 | NUR ---
DR SOLORIO CALLED BACK. HE STATED TO HOLD OFF, HE WANTED TO TALK TO THE FIRST. SAID THAT HE WASN'T SURE IF THE PATIENT WAS STABLE FOR TRANSPORT AND THAT IF TRANSFERRED HE WOULD PROBABLY NEED TO BE REINTUBATED FIRST. HE SAID HE WOULD SPEAK WITH THE SOON HE GOT HERE AND THEN WE WOULD GO FROM THERE. THIS ALL WAS ALSO DISCUSSED WITH ISABELA POLANCO.
--- NOTE | 2016-09-23 10:30 | NUR ---
DR ELIOT GARICA PER DR VILLANUEVA'S REQUEST SO THAT HE MAY DISCUSS THE PATIENT WITH HIM.
--- NOTE | 2016-09-23 10:42 | NUR ---
SPOKE WITH DR SOLORIO ABOUT POSSIBLY GIVING THE PATIENT SOMETHING FOR THE CHEST DISCOMFORT THAT HE IS HAVING FROM CHEST COMPRESSIONS. HE SAID HE WOULD LOOK AT IT.
--- NOTE | 2016-09-23 10:52 | NUR ---
PT VOMITED A SMALL AMOUNT (LESS THAN 10CC) OF PINKISH EMESIS. AND THEN CONTINUED TO DRY HEAVE. ZOFRAN GIVEN PER PRN ORDERS. STAYED WITH THE PATINET UNTIL THE EPISODE PASSED AND HE FELT IT WAS OK TO LEAVE THE ROOM.
--- NOTE | 2016-09-23 11:09 | NUR ---
WAS WITH DR SOLORIO HE SPOKE WITH PATIENTS AND DAUGHTER FOR AROUND [address] SOLORIO WILL FOLLOW UP WITH DR MCCABE AND WE WILL GO FROM THERE.
--- NOTE | 2016-09-23 12:06 | NUR ---
DOBUTAMINE DRIP STARTED PER ORDERS. WILL MONITOR.
--- NOTE | 2016-09-23 12:13 | NUR ---
SOFTWARE SUPPORT ANALYST YELLED TO CHECK ON PATIENT. PATIENT WAS FOUND TO BE IN VTACH/VFIB, PULSELESS, GASPED AND STOPPED BREATHING. CODE CALLED, SEE CODE SHEET.
--- NOTE | 2016-09-23 15:07 | NUR ---
AND DAUGHTER HERE FOR VISITATION. DR STEPHEN HERE AND HE SPOKE WITH THEM. AFTER DR STEPHEN, DR NORMAN AND RICHARD GARCES FOR DR LARES TALKED. WILL NOT DO DIALYSIS TODAY. NEW ORDERS RECEIVED.
--- NOTE | 2016-09-23 17:27 | NUR ---
PATIENT REPOSITIONED FOR COMFORT. IRRIGATED OGT SECONDARY TO BEING CLOGGED. PATIENT RESTING COMFORTABLY AT THIS TIME.
--- NOTE | 2016-09-23 18:35 | NUR ---
PATIENTS AND DAUGHTER HAVE LEFT. THERE WERE NO QUESTIONS DURING THIS VISITATIONS. PATIENT IS RESTING COMFORTABLY. HIS COUGHING EPISODES HAVE BECOME FEW AND FAR BETWEEN. WILL CONTINUE TO MONITOR.
--- NOTE | 2016-09-23 19:00 | NUR ---
1899: Pt rec'd resting HOB 30 degrees with eyes closed. Pt is sedated with dirivan and unresponsive to verbal stimuli. Pupils 3- bilaterally. Pt breathing via ETT with vent as per vent flow sheet. S1S2 SR on CM at this time. Temp 98.7 oral. Left IJ Trialysis cath intact with mannifold attached. See IV gtts. ABD soft NT BS absent x4. NGT to LIS with position confirmed with 30 cc air bolus and auscultation. Ramos cath to gravity drainage.
--- NOTE | 2016-09-23 20:16 | NUR ---
2016: Pt Arrythmia alarm sounding. Pt in V-Tach on CM. Code Blue intiated and called overhead. See Code Blue Sheet.
[2016-09-23 20:38] LABS: BASOPHILS 0.1 % (0.0-2.0); EOSINOPHILS 0.1 % (0-7); IMMATURE GRANULOCYTES 1.1 % (0-5); LYMPHOCYTES 17.4 % (15-50); MCH 27.7 pg (26.0-34.0); MCHC 30.8 g/dL (31.0-37.0); MONOCYTES 8.1 % (2-11); NEUTROPHILS 73.2 % (40-80); PLATELET COUNT 176 10x3/uL (130-400); RBC 2.89 10x6/uL (4.20-6.10); RDW 13.7 % (11.5-14.5); WBC 12.1 10x3/uL (4.8-10.8)
[2016-09-23 21:00] LABS: ALBUMIN 1.9 g/dL (3.4-5.0); ANION GAP 14.3 mmol/L (8-16); BILIRUBIN - TOTAL 0.48 mg/dL (0.2-1.3); CALCIUM 8.2 mg/dL (8.5-10.1); CARBON DIOXIDE 26.6 mmol/L (21.0-32.0); CREATININE - SERUM 3.6 mg/dL (0.6-1.3); POTASSIUM - SERUM 3.9 mmol/L (3.5-5.1); PROTEIN - SERUM 5.4 g/dL (6.4-8.2)
[2016-09-23 21:08] LABS: PHOSPHOROUS 4.3 mg/dL (2.5-4.9)
[2016-09-23 21:09] LABS: MAGNESIUM - SERUM 4.2 mg/dL (1.8-2.4)
--- NOTE | 2016-09-23 21:15 | NUR ---
5: Pt arrythmia alarm sounding. Pt is in V-tach vs Torsades. Code Blue intiated and called overhead. See code blue sheet.
--- NOTE | 2016-09-23 22:00 | NUR ---
2200: Pt arrythmia alarm sounding. Pt in V-tach on CM. Code blue intiated and called overhead. See code blue sheet.
--- NOTE | 2016-09-23 22:31 | NUR ---
2231: Family here. Pt remains in persistent V-Tach/Torsades. Discussed pt condition with family. Code stopped and pt was pronounced by Dr. Mejia.
--- NOTE | 2016-09-23 23:20 | NUR ---
2320: [facility], Julian, Jackie (for [facility]) notified.
--- NOTE | 2016-09-23 23:26 | NUR ---
2326: [facility] notifed of . Ref # rec'd and rep states the patient maybe released to at this time.
--- NOTE | 2016-09-23 23:41 | NUR ---
2341: Camilo Crowley [facility] called and notifed of and request for service.
--- NOTE | 2016-09-24 00:45 | NUR ---
0045: Pt was recived by rep and discharged into [facility]. Provided Face sheet and contact info to rep.
--- NOTE | 2016-09-27 08:17 | OP ---
PATIENT NAME: IDALMIS JEREZ MEDICAL RECORD: [id number] :51 LOCATION:[facility] D.2305 ADMISSION DATE:09/05/16 SURGEON: MEME MCCABE M.D. DATE OF OPERATION: 09/13/2016 Catheterization Report PROCEDURES PERFORMED: 1. Selective coronary angiography. 2. Left heart catheterization with ventriculogram. 3. PTCA and stent placed in the right coronary artery. INDICATION: A 61-year-old gentleman who presents status post non-Q-wave myocardial infarction. EQUIPMENT USED: Diagnostic 5-Central African JL4, Alexey right, pigtail catheter. INTERVENTION: A 6-Central African AR1 guide, BMW guidewire, 3.5 x 18 mm Integrity stent. TECHNIQUE: A 5-Central African sheath was inserted in retrograde fashion in the right common femoral artery. Next, selective coronary angiography was performed in standard 5-Central African JL4 and Alexey right. Left heart catheterization performed using pigtail catheter. CORONARY ANATOMY: 1. Left main: Left main trunk is moderate in caliber. It gives rise to the LAD and circumflex. It has no obstruction. 2. LAD: This vessel appears 100% occluded right beyond the origin. There is no staining or flow seen through the LAD system. 3. Circumflex: This vessel is large in caliber. The mid vessel has a smooth 40% stenosis. 4. Right coronary artery: This vessel is large in caliber and dominant. The proximal vessel has an ulcerated 80% stenosis. The distal vessel provides collaterals to fill the LAD. 5. Left ventricle: Left ventricle is dilated. The mid and distal anterior wall are akinetic. There appears to be a filling defect in the apex, which could be suggestive of thrombus. Estimated ejection fraction is in the order 15% to 20%. DESCRIPTION OF INTERVENTION: A 6-Central African sheath was inserted in retrograde fashion in the right common femoral artery. Next, 100 units per kilogram of heparin was infused. A 6-Central African AR1 guide was advanced and engaged in the right coronary artery. Next, a BMW guide wire was placed in the distal vessel. A 3.5 x 18 mm Integrity stent was placed across the stenosis and deployed at 12 atmospheres. Injection shows stent to be widely patent with 0% residual stenosis. There is marked improvement in distal flow. At this point, the wire and guide were removed. IMPRESSION: Successful percutaneous transluminal coronary angioplasty and stent of the right coronary with 0% residual stenosis. PLAN: At this point, we will watch him clinically. It is hard to know whether or not the LAD occlusion is recent or chronic occlusion. He has rich collaterals from the right coronary artery. If he continues to have angina, we will consider PTCA of this vessel at that point. OPERATIVE REPORT [id number] IDALMIS JEREZ TRANSINT:[id number] Voice Confirmation ID: [id number] DOCUMENT ID: [id number] MEME MCCABE M.D. at 0817 CC: [id number] DICTATION DATE: 09/13/16 1502 PELOTA MAKER: 09/13/162020 DIS IN 09/23/16 [facility] [address] [place] [address]
--- NOTE | 2016-09-27 08:17 | EC ---
PATIENT:IDALMIS JEREZ DATE OF SERVICE: 09/05/16 SEX: M MEDICAL RECORD: [id number] DATE OF : [birth year] LOCATION:[facility] D230 AGE OF PATIENT: 61 ADMISSION DATE: 09/05/16 REFERRING PHYSICIAN: INTERPRETING PHYSICIAN: MEME ACEVEDO M.D. ECHOCARDIOGRAM REPORT ECHO CHARGES 5 ECHO LIMITED 1 DOPPLER ECHO COLOR FLOW 2 DOPPLER ECHO PULSE CLINICAL DIAGNOSIS: LV THROMBUS ECHOCARDIOGRAPHIC MEASUREMENTS (adult normal given) AC root (d.<3.7cm) 0 LV Septum d (<1.2 cm> 0 Valve Excursion 0 LV Septum (systole) 0 Left Atria (s.<4.0cm> 0 LVPW d(<1.2cm) 0 RV (d.<2.3cm) 0 LVPW (sytole) 0 LV diastole(<5.6CM) 0 MV E-F(>70mm/sec) 0 LV systole 0 LVOT Diameter 0 MV exc.(>10mm) 0 Est.ejection fraction (50-75%) 0 Pericardial Effusion N DOPPLER: LVIT 0 A 0 E 0 LA 0 RVSP 61.0 LVOT 0 AOP1/2T 0 Asc. Ao 0 RVOT 0 RA 0 PA 0 AV Gradient Peak 0 AV Mean 0 AV Area 0 MV Gradient Peak 0 MV Mean 0 MV Area 0 COMMENTS: LIMITED STUDY (2-D,COLOR & LIMITED DOPPLER) COMPLETE ECHO DONE ON 09/06/16 & 09/15/16 COMPLETE ECHO DONE ON 09/06/16 & / Land Management Supervisor: 1 MATT TUCKER Mortarman:2 Dr. Acevedo TAPE# PACS DATE OF SERVICE: 09/21/2016 REFERRING PHYSICIAN: Cristhian Foy DO. ECHOCARDIOGRAM REPORT [id number] IDALMIS JEREZ INDICATION: Rule out left ventricular thrombus. DESCRIPTION: This is a limited study. The full study was performed on 09/14/2016. DESCRIPTION: Left ventricle is moderately dilated. There is severe LV dysfunction noted. His ejection fraction is in the order of 25%. On previous echo, there is a large filling defect suggestive of thrombus. Today's study, there may be a very small thrombus noted in the left ventricle apex. Esmarch reduced in size from previous study. Mitral valve is structurally normal. There is moderate regurgitation seen. Left atrium is mildly dilated. The aortic valve appears normal without insufficiency. Right ventricle is moderately dilated. Tricuspid valve is normal. There is moderate regurgitation seen. Right ventricular systolic pressure is elevated at 61 mmHg. There is no pericardial effusion noted. IMPRESSION: 1. Severe left ventricular dysfunction with ejection fraction of 25%. 2. There is a small filling defect noted at the apex. Esmarch reduced in size from previous study. This may represent a mural thrombus which has improved markedly since the last study. 3. Moderate tricuspid regurgitation with elevated pulmonary pressures. TRANSINT:[id number] Voice Confirmation ID: [id number] DOCUMENT ID: [id number] MEME ACEVEDO M.D. at 0817 CC: [id number] DICTATION DATE: 09/21/16 1441 SHERIFF DEPUTY: 09/22/16 1059 DIS IN 09/23/16 [id number] [place] [address]
--- NOTE | 2016-09-27 08:17 | EC ---
PATIENT:IDALMIS JEREZ DATE OF SERVICE: 09/05/16 SEX: M MEDICAL RECORD: [id number] DATE OF : 51 LOCATION:[facility] AGE OF PATIENT: 61 ADMISSION DATE: 09/05/16 REFERRING PHYSICIAN: INTERPRETING PHYSICIAN: MEME ACEVEDO M.D. ECHOCARDIOGRAM REPORT ECHO CHARGES 4 ECHO COMPLETE CLINICAL DIAGNOSIS: CHF ECHOCARDIOGRAPHIC MEASUREMENTS (adult normal given) AC root (d.<3.7cm) 3.9 LV Septum d (<1.2 cm> 1.2 Valve Excursion 2.1 LV Septum (systole) 1.3 Left Atria (s.<4.0cm> 4.2 LVPW d(<1.2cm) 1.1 RV (d.<2.3cm) 2.6 LVPW (sytole) 1.5 LV diastole(<5.6CM) 5.4 MV E-F(>70mm/sec) LV systole 4.5 LVOT Diameter 1.7 MV exc.(>10mm) 1.2 Est.ejection fraction (50-75%) Pericardial Effusion N DOPPLER: LVIT A 65.0 E 25.0 LA RVSP 23 LVOT 74 AOP1/2T Asc. Ao 102 RVOT 57 RA PA 110 AV Gradient Peak 4.13 AV Mean 1.96 AV Area 2.1 MV Gradient Peak 2.81 MV Mean 1.05 MV Area COMMENTS: Refrigerator Assembler: Robyn DUNN Carpenter Packing:2 Dr. Acevedo TAPE# PACS DATE OF SERVICE: 09/06/2016 REFERRING PHYSICIAN: Trevin Johnson MD INDICATION: Congestive heart failure. DESCRIPTION: Left ventricle is upper limits of normal size. There is severe global hypokinesis noted. The anterior and lateral hull are very hypokinetic. Estimated ejection fraction is in the order of 25% to 30%. Mitral valve is structurally normal. There is mild regurgitation seen. Left atrium is mildly ECHOCARDIOGRAM REPORT [id number] IDALMIS JEREZ dilated. The aortic valve leaflets are thickened. However, there is no stenosis or regurgitation seen. Right ventricle is mildly dilated. Tricuspid valve is structurally normal. There is mild regurgitation noted. Right atrium is normal in size. There is no pericardial effusion seen. IMPRESSION: 1. Severe left ventricular dysfunction with ejection fraction of 25% to 30% consistent with cardiomyopathy. 2. Mild mitral regurgitation. 3. Mild tricuspid regurgitation. 4. Aortic valve sclerosis without stenosis. TRANSINT:[id number] Voice Confirmation ID: [id number] DOCUMENT ID: [id number] MEME ACEVEDO M.D. at 0817 CC: [id number] DICTATION DATE: 09/06/16 1541 DECORATIVE ENGRAVER APPRENTICE: 09/06/16 2252 DIS IN 09/23/16 [facility] [address] [id number]
--- NOTE | 2016-09-27 08:17 | EC ---
PATIENT:IDALMIS JEREZ DATE OF SERVICE: 09/05/16 SEX: M MEDICAL RECORD: [id number] DATE OF : 51 LOCATION:[facility] AGE OF PATIENT: 61 ADMISSION DATE: 09/05/16 REFERRING PHYSICIAN: INTERPRETING PHYSICIAN: MEME ACEVEDO M.D. ECHOCARDIOGRAM REPORT ECHO CHARGES 5 ECHO LIMITED CLINICAL DIAGNOSIS: REASSESS EF DUE TO V FIB AND MULTIPLE SHOCKS ECHOCARDIOGRAPHIC MEASUREMENTS (adult normal given) AC root (d.<3.7cm) 3.7 LV Septum d (<1.2 cm> 1.0 Valve Excursion 2.1 LV Septum (systole) 1.1 Left Atria (s.<4.0cm> 4.3 LVPW d(<1.2cm) 1.3 RV (d.<2.3cm) 5.4 LVPW (sytole) 1.4 LV diastole(<5.6CM) 6.5 MV E-F(>70mm/sec) LV systole 5.3 LVOT Diameter 1.7 MV exc.(>10mm) 1.2 Est.ejection fraction (50-75%) Pericardial Effusion N DOPPLER: LVIT A 65.0 E 25.0 LA RVSP 23 LVOT 74 AOP1/2T Asc. Ao 102 RVOT 57 RA PA 110 AV Gradient Peak 4.13 AV Mean 1.96 AV Area 2.1 MV Gradient Peak 2.81 MV Mean 1.05 MV Area COMMENTS: Fire Lookout: Robyn DUNN [employer] Social [employer] Teacher:2 Dr. Acevedo TAPE# PACS DATE OF SERVICE: 09/15/2016 INDICATION: Ventricular fibrillation. DESCRIPTION: This is a limited study. Left ventricle appears mildly dilated. There is severe LV dysfunction noted. The apex and distal anterior wall are remarkably akinetic. There appears to be a thrombus in the left ventricle apex as well. Estimated ejection fraction is in the order of 15%-20%. IMPRESSION: Severe left ventricular dysfunction with ejection fraction of ECHOCARDIOGRAM REPORT [id number] IDALMIS JEREZ 15%-20% with anterior wall akinesis. In addition, there appears to be a thrombus in the left ventricular apex. TRANSINT:[id number] Voice Confirmation ID: [id number] DOCUMENT ID: [id number] MEME ACEVEDO M.D. at 0817 CC: [id number] DICTATION DATE: 09/16/16 0757 BIRD KEEPER: 09/16/16 1237 DIS IN 09/23/16 [address] [place] [address]
[2016-09-28 14:25] LABS: F. TULARENSIS - IGG Negative (()); F. TULARENSIS - IGM Negative (())
--- NOTE | 2016-09-30 13:49 | CN ---
PATIENT NAME:IDALMIS SPARROW MEDICAL RECORD: [id number] : 51 LOCATION:[id number] ADMIT DATE: 09/05/16 ACCOUNT: [id number] CONSULTING PHYSICIAN: LINCOLN YA MD REFERRING PHYSICIAN: BRITTA DESAI MD DATE OF CONSULTATION: 09/15/2016 CONSULT REQUESTING PHYSICIAN: Dr. Danny Myers. REASON FOR CONSULTATION: Status post cardiopulmonary arrest. HISTORY OF PRESENT ILLNESS: Mr. Sparrow is a 61-year-old gentleman who was admitted with acute myocardial infarction as well as renal failure on 09/05/2016. Yesterday, while the patient was in dialysis, the patient coded. He was in v-fib, v-tach, and he was shocked so many times. He also had similar episode last night and shocked a few times. Now, the patient is orally intubated and sedated. The history was taken mainly by talking to the nursing staff and reviewing the patient's notes. According to the a few years ago, he was diagnosed with Lyme disease, but he has some skin rash, and he was treated with doxycycline. REVIEW OF SYSTEMS: Not obtainable. ALLERGIES: There are no known drug allergies. PRESENT MEDICATIONS: He is on doxycycline IV. All his medications on the [employer] was reviewed. PERSONAL AND SOCIAL HISTORY: The patient is and lives with his . He is a nonsmoker and nondrinker. FAMILY HISTORY: Noncontributory. PHYSICAL EXAMINATION: GENERAL: Now, the patient is orally intubated and sedated. VITAL SIGNS: The blood pressure is 112/76, pulse is 94, respiration is 16, and temperature is 98.8. SpO2 is 97% to 100% on 100% oxygen on mechanical ventilation assist control with tidal volume of 600, PEEP of 5. HEENT: Conjunctivae is pink. Sclerae are nonicteric. Pupils are equal, round, and reactive to light. NECK: Supple, no JVD. CHEST: There are bibasilar crackles. No wheezing. HEART: Rhythm regular, normal sound, no murmur. ABDOMEN: Soft, bowel sounds present. No hepatosplenomegaly. RECTAL: Deferred. EXTREMITIES: No cyanosis, no clubbing. There is 1+ pedal edema. SKIN: Warm, normal turgor. CENTRAL NERVOUS SYSTEM: There is no obvious gross abnormality. The patient is sedated. LABORATORY DATA: CBC: The WBC is 16.1, hemoglobin 9.1, hematocrit 26.7, and platelet count 150. Chemistry: Sodium 131, potassium is 3.3, BUN is 55, creatinine 4.8, glucose 237, calcium is 8.4, and magnesium 2.5. ABGs: The pH was 7.64, pCO2 was 25.4, and the pO2 was 192. Just after intubation, the pH was 7.41, pCO2 was 43.1, the pO2 was 51, and the bicarbonate was 27.4. CONSULT REPORT [id number] IDALMIS SPARROW IMAGING: Chest radiograph: The ET tube is in good position. There are bilateral increased interstitial markings. IMPRESSION: 1. Acute respiratory failure status post cardiopulmonary arrest. 2. Ventricular tachycardia and fibrillation, required multiple shocks. 3. Acute myocardial infarction. 4. End-stage renal disease. 5. Leukocytosis. 6. Anemia, possibly secondary to renal disease. 7. Pulmonary edema, fluid overload. 8. Cardiogenic shock. 9. History of Lyme disease. RECOMMENDATION: 1. We will continue mechanical ventilation. 2. Continue empiric doxycycline. 3. Adjust the ventilator setting. 4. Check the sputum for culture and sensitivity. 5. Follow the vent bundle. 6. Gastrointestinal bleed, ulcer prevention. 7. Deep venous thrombosis prophylaxis. 8. Follow up labs and chest radiograph. Discussed with RN and RT. Dr. Myers, once again, thanks for involving me in the care of Mr. Sparrow. TRANSINT:[id number] Voice Confirmation ID: [id number] DOCUMENT ID: [id number] LINCOLN YA MD at 1349 CC: DANNY MYERS MD [id number] DICTATION DATE: 09/15/16 0943 [employer] SPECIALIST: 09/15/16 1218 DIS IN 09/23/16 [id number] [place] [address]
--- NOTE | 2016-10-03 13:22 | NUR ---
Per CMS protocol, restraint report logged into data base.
--- NOTE | 2016-11-03 15:50 | DS ---
PATIENT:IDALMIS JEREZ :51 MEDICAL RECORD: [id number] DISCHARGE SUMMARY ADMISSION DATE: 09/05/16 DISCHARGE DATE: 09/23/16 DATE OF ADMISSION: 09/05/2016 DATE OF DISCHARGE: 09/23/2016 ADMITTING DIAGNOSES: Renal failure and myocardial infarction. HOSPITAL COURSE: This is a 61-year-old gentleman who presented to the Emergency Room secondary to shortness of breath, oliguria, paroxysmal nocturnal dyspnea, orthopnea, cough, admitted with diagnoses as outlined above. Details are well-outlined in the history of the present illness, H&P. All events, lab procedures, diagnostic testing are well documented in the records as indicated by the dates, he had a rather lengthy stay. CONSULTANTS: Dr. Ortega, nephrology; Dr. Mendoza, surgery; Dr. Acevedo, cardiology; Dr. Chavarria, pulmonary. He had several echoes during the stay and unfortunately had a cardiac arrest with V-tach. His respiratory status worsened. He required BiPAP. Per Dr. Hernandez, cardiac catheterization showed that the anterior wall appeared mostly . He was put on Dobutrex. The cardiologists were talking to Dr. Taylor at [facility] in [place] for possible EPS, unfortunately another code blue was called. He had a lengthy resuscitation effort. The family elected to stop resuscitative efforts. Please refer to the code sheet and all the documented in the electronic medical record, as well as the hard copy of the chart. He 09/23/2016, 2231. CAUSE OF : Cardiopulmonary arrest, Dr. Mejia pronounced them. 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 TRANSINT:[id number] Voice Confirmation ID: [id number] DOCUMENT ID: [id number] Dictated By: TEVIN AMAYA RN I have interviewed/examined the above patient and agree with these documented findings. BENITA SOLORIO DO at 1012 at 1550 CC: [id number] DICTATION DATE: 11/02/16 1533 [employer] SAMPLER: 11/03/16 1231 DIS IN 09/23/16 [facility] [address] [place] [address]
== END 2016-09-23 22:31 | DRG 248 ==
LOC: D.ER 12:52 → D.M2 15:52 → D.ICU 15:52 → D.M2 09-09 06:22 → D.ICU 09-14 18:11
PROVIDERS: Emergency Medicine; General Practice; Internal Medicine Cardiovascular Disease; Internal Medicine Nephrology; Internal Medicine Pulmonary Disease; Student in an Organized Health Care Education/Training Program; ADMIT Emergency Medicine
PROC: 05HN33Z Insertion of Infusion Device into Left Internal Jugular Vein, Percutaneous Approach (ICD-10-PCS; principal; 2016-09-10)
PROC: B544ZZA Ultrasonography of Left Jugular Veins, Guidance (ICD-10-PCS; 2016-09-10)
PROC: 5A1D60Z (ICD-10-PCS; 2016-09-10)
PROC: 0TB13ZX Excision of Left Kidney, Percutaneous Approach, Diagnostic (ICD-10-PCS; 2016-09-12)
PROC: 4A023N7 Measurement of Cardiac Sampling and Pressure, Left Heart, Percutaneous Approach (ICD-10-PCS; 2016-09-13)
PROC: B2111ZZ Fluoroscopy of Multiple Coronary Arteries using Low Osmolar Contrast (ICD-10-PCS; 2016-09-13)
PROC: B2151ZZ Fluoroscopy of Left Heart using Low Osmolar Contrast (ICD-10-PCS; 2016-09-13)
PROC: 02703DZ Dilation of Coronary Artery, One Artery with Intraluminal Device, Percutaneous Approach (ICD-10-PCS; 2016-09-13 14:00)
PROC: 5A12012 Performance of Cardiac Output, Single, Manual (ICD-10-PCS; 2016-09-14)
PROC: 0BH17EZ Insertion of Endotracheal Airway into Trachea, Via Natural or Artificial Opening (ICD-10-PCS; 2016-09-14)
PROC: 5A1955Z Respiratory Ventilation, Greater than 96 Consecutive Hours (ICD-10-PCS; 2016-09-14)
PROC: 03HY32Z Insertion of Monitoring Device into Upper Artery, Percutaneous Approach (ICD-10-PCS; 2016-09-14)
PROC: 5A12012 Performance of Cardiac Output, Single, Manual (ICD-10-PCS; 2016-09-22)
PROC: 5A12012 Performance of Cardiac Output, Single, Manual (ICD-10-PCS; 2016-09-23)
PROC: 0T9B70Z Drainage of Bladder with Drainage Device, Via Natural or Artificial Opening (ICD-10-PCS; 2016-09-23)
PROC: 0D9670Z Drainage of Stomach with Drainage Device, Via Natural or Artificial Opening (ICD-10-PCS; 2016-09-23)
PROC: 0BH17EZ Insertion of Endotracheal Airway into Trachea, Via Natural or Artificial Opening (ICD-10-PCS; 2016-09-23)
PROC: 5A1935Z Respiratory Ventilation, Less than 24 Consecutive Hours (ICD-10-PCS; 2016-09-23)
DX: I21.4 Non-ST elevation (NSTEMI) myocardial infarction (principal); N18.6 End stage renal disease; I50.23 Acute on chronic systolic (congestive) heart failure; J96.00 Acute respiratory failure, unspecified whether with hypoxia or hypercapnia; J15.6 Pneumonia due to other Gram-negative bacteria; N17.9 Acute kidney failure, unspecified; E87.1 Hypo-osmolality and hyponatremia; I13.2 Hypertensive heart and chronic kidney disease with heart failure and with stage 5 chronic kidney disease, or end stage renal disease; I47.2 Ventricular tachycardia; E87.3 Alkalosis; A77.0 Spotted fever due to Rickettsia rickettsii; I42.9 Cardiomyopathy, unspecified; R57.0 Cardiogenic shock; E11.22 Type 2 diabetes mellitus with diabetic chronic kidney disease; Z79.4 Long term (current) use of insulin; E78.5 Hyperlipidemia, unspecified; D89.0 Polyclonal hypergammaglobulinemia; I25.10 Atherosclerotic heart disease of native coronary artery without angina pectoris; Z99.2 Dependence on renal dialysis; D63.1 Anemia in chronic kidney disease; E11.21 Type 2 diabetes mellitus with diabetic nephropathy; E87.6 Hypokalemia; R19.7 Diarrhea, unspecified